=== PATIENT | male | born 1970 | race American Indian/Alaskan Native ===

== ENCOUNTER 2021-04-29 12:24 | Emergency (ER) | payer MEDICARE ==
[2021-04-29] MEDS ORDERED: levETIRAcetam 1000 MG/NS 0.75% 1,000 MG/100 ML BAG IV SCH (12:30)
[2021-04-29] MEDS ORDERED: LORazepam 2 MG/ML VIAL IV SCH (12:30)
--- NOTE | 2021-04-29 12:36 | Emergency Department Report ---
HPI - General Chief Complaint: Neuro Symptoms/Deficit Time Seen by Provider: 04/29/21 12:28 - HPI HPI: Room 25 The patient is a 51-year-old male present with a chief complaint of altered mental status/seizure. Per EMS the patient was at dialysis when he was found to be hypertensive. At 11: 55 the patient stopped responding and had a rightward gaze. Upon EMS arrival the patient was found to have a focal seizure of the right face with a rightward gaze. Per EMS the patient has never responded verbally to them. Upon arrival to the ED the patient localizes with his left hand when given a sternal rub but he does not speak as he continues to seize. Patient was administered 2 mg of Ativan and within 1 to 2 minutes the seizure abated. ED Past Medical Hx - Past Medical History Hx Hypertension: Yes Hx Kidney Stones: Yes (ESRD) - Surgical History Additional Surgical History: Left upper extremity fistula - Family History Family history: no significant - Social History Smoking Status: Unknown if ever smoked Substance Use Type: None ED Review of Systems ROS: Stated complaint: STROKE Other details as noted in HPI Comment: Unobtainable due to pts medical conditions Physical Exam - Physical Exam Vital Signs: Vital Signs 04/29/21 12:28 Pulse Rate 71 Respiratory 18 Rate Blood Pressure 205/132 [Left] O2 Sat by Pulse 98 Oximetry Physical Exam: GENERAL: The patient is well-developed well-nourished male sitting up on stretcher exhibiting rightward gaze with twitching of the right side of his face. [] HEENT: Normocephalic. Atraumatic. Rightward gaze, twitching to the right side of the face NECK: Supple. Trachea midline CHEST/LUNGS: Clear to auscultation. There is no respiratory distress noted. HEART/CARDIOVASCULAR: Regular. There is no tachycardia. There is no gallop rub or murmur. ABDOMEN: Abdomen is soft, nontender. Patient has normal bowel sounds. There is no abdominal distention. SKIN: There is no rash. There is no edema. There is no diaphoresis. NEURO: The patient is having a focal seizure of the right face. Patient does not respond verbally but localizes with the left hand when given a sternal rub. MUSCULOSKELETAL: There is no evidence of acute injury. ED Course Vital Signs 04/29/21 12:28 Pulse Rate 71 Respiratory 18 Rate Blood Pressure 205/132 [Left] O2 Sat by Pulse 98 Oximetry - Reevaluation(s) Reevaluation #1: 04/29/21 13:50 GCS 8 - Consultations Consultation #1: Case discussed with [id number]-[id number]-dc will follow up after CT CT discussed with glrr-[id number]-nwyybulrbl Keppra 2 g and transfer to hospital with a recent intracranial surgery was performed 04/29/21 13:13 [facility] transfer line called 04/29/21 13:51 Case discussed with [facility] neuro pump installation and servicer Dr. Banks- will accept patient in transfer to [facility] Recommends administering DDAVP 0.3 mcg/kg and keeping systolic blood pressure less than 150. 04/29/21 14:29 - Intubation Sedative: Etomidate Mg Given: 20 Paralytic: Succinylcholine Mg Given: 100 Laryngoscope: fiberoptic video scope Size: 3 Assist Device Used: fiberoptic device ET Tube Size: 8 Tube Secured Depth (cm): 24 Tube Secured Location: lips Tube Placement Confirmation: visualized tube passing t, equal breath sounds bila t, no breath sounds over epi, confirmation by capnometr Patient Tolerated Procedure: no complications Intubation Complications: none ED Medical Decision Making - Lab Data Result diagrams: 04/29/21 12:43 04/29/21 12:43 Laboratory Tests 04/29/21 04/29/21 04/29/21 12:43 12:43 12:43 WBC 8.0 RBC 3.78 Hgb 11.1 L Hct 33.7 L MCV 89 MCH 30 MCHC 33 RDW 17.9 H Plt Count 162 Lymph % (Auto) 4.6 L [place] % (Auto) 10.9 H Eos % (Auto) 6.9 H Baso % (Auto) 2.0 H Lymph # (Auto) 0.4 L [place] # (Auto) 0.9 H Eos # (Auto) 0.6 H Baso # (Auto) 0.2 H Seg Neutrophils % 75.6 H Seg Neutrophils # 6.1 PT 15.1 H INR 1.07 APTT 33.9 Sodium 139 Potassium 4.6 Chloride 96.3 L Carbon Dioxide 19 L Anion Gap 28 BUN 79 H Creatinine 14.6 H Estimated GFR 4 BUN/Creatinine Ratio 5 Glucose 121 H Calcium 9.1 Magnesium 2.30 - Radiology Data Radiology results: report reviewed (CT head, CTA brain, CTA neck), image reviewed (CT head, CTA brain, CTA neck) [facility] [address] [place] [address] Cat Scan Report Signed Patient: NICOLE RAYA MR#: [id number] : 1970 Acct:[id number] Age/Sex: 51 / M ADM Date: 04/29/21 Loc: ED Attending Dr: Ordering Physician: RONALD YEPEZ MD Date of Service: 04/29/21 Procedure(s): CT head/brain wo con Accession Number(s): [id number] cc: RONALD YEPEZ MD CT HEAD WITHOUT CONTRAST INDICATION : CODE STROKE CALL REPORT [phone] Altered mental status, rightward gaze, focal seizu. TECHNIQUE: Axial imaging performed from the skull apex through the skull base without the use of contrast. Sagittal and coronal reformatted images. All CT scans at this location are performed using CT dose reduction for ALARA by means of automated exposure control. COMPARISON: None FINDINGS: Parenchyma: A left frontal ventricular peritoneal shunt is identified. There is an approximate 2 x 6 x 2 x 2 cm acute hemorrhage surrounding the ventricular catheter in the left frontal lobe with surrounding edema. No other areas of hemorrhage are identified. No convincing acute ischemic infarct. Mild nonspecific chronic white matter changes are noted. No chronic infarct. Ventricles: Ventricles are normal in size and appear symmetric. Bones: No acute osseous abnormality. Sinuses: Sinuses and mastoid air cells are clear. Soft tissues: There is mild soft tissue swelling and hemorrhagic products in the left frontal soft tissue surrounding the ventriculoperitoneal shunt. IMPRESSION: Acute left frontal hemorrhage as described surrounding the left frontal ventricular catheter. CODE STROKE: Time of Communication (PHYSICAL INSTRUCTOR/CDT): 1240 hours Licensed Practitioner Receiving Report: Dr. Durbin received this information for Dr. Yepez who was in care of the patient. CTA NECK INDICATION / CLINICAL INFORMATION: 51 years Male; CODE STROKE CALL REPORT [phone] Altered mental status, rightward gaze, focal seizu. TECHNIQUE: Thin cut axial images obtained through the head during IV bolus contrast administration. Sagittal, coronal, and 3 plane MIP reconstructions performed by the technologist. NASCET type criteria used evaluate stenoses. All CT scans at this location are performed using CT dose reduction for ALARA by means of automated exposure control. COMPARISON: None available. FINDINGS: ARCH: Mild atherosclerotic disease. CAROTID ARTERIES: The common carotid arteries and internal carotid arteries are tortuous. There are moderate to severe calcific plaques in the right carotid bulb extending to the proximal right ICA. Moderate to severe stenosis is suspected in the proximal right ICA. The remainder of the right ICA is widely patent. There are mild to moderate atherosclerotic plaques in the left carotid bulb with no evidence for stenosis in the left carotid system. VERTEBRAL ARTERIES: Codominant vertebral system seen. No significant stenosis appreciated. ADDITIONAL FINDINGS: Remainder of the surrounding soft tissues are grossly normal. IMPRESSION: Moderate calcific plaques are identified at both carotid bifurcations, more so on the right side. Hemodynamically significant stenosis is suspected in the proximal right ICA and estimated at 70- 80%. The level of stenosis is difficult to measure due to extensive tortuosity of the vessels. Consider correlation with carotid Doppler ultrasound. CTA HEAD INDICATION / CLINICAL INFORMATION: 51 years Male; CODE STROKE CALL REPORT [phone] Altered mental status, rightward gaze, focal seizu. TECHNIQUE: Thin cut axial images obtained through the head during IV bolus contrast administration. Sagittal, coronal, and 3 plane MIP reconstructions performed by the technologist. NASCET type criteria used evaluate stenoses. Automated exposure control utilized for radiation reduction purposes. COMPARISON: None available. FINDINGS: INTERNAL CAROTID ARTERIES: Mild to moderate atherosclerotic plaques are noted in the distal ICAs but no hemodynamically significant stenosis. VERTEBROBASILAR SYSTEM: No significant narrowing appreciated. DISTAL BRANCHES: Distal branches of the anterior, middle, and posterior cerebral arteries are fairly symmetric in appearance and number. There appears to be previous surgical clipping or coiling in the right sylvian fissure which may represent previous aneurysm repair. Please correlate with history. ANEURYSM: None identified. ADDITIONAL FINDINGS: Remainder of the surrounding soft tissues are grossly normal. IMPRESSION: No evidence for stenosis or large vessel occlusion. Question previous aneurysm repair in the right sylvian fissure. Signer Name: Neal Interiano Jr, MD Signed: 04/29/2021 1:47 PM Workstation Name: [id number] Transcribed By: TTR Dictated By: NEAL INTERIANO JR, MD Electronically Authenticated By: NEAL INTERIANO JR, MD Signed Date/Time: 04/29/21 1347 DD/ 1330 TD/TT: Print Cancel [facility] [address] [place] [address] Cat Scan Report Signed Patient: NICOLE RAYA MR#: [id number] : 1970 Acct:[id number] Age/Sex: 51 / M ADM Date: 04/29/21 Loc: ED Attending Dr: Ordering Physician: RONALD YEPEZ MD Date of Service: 04/29/21 Procedure(s): CT angio head Accession Number(s): [id number] cc: RONALD YEPEZ MD CT HEAD WITHOUT CONTRAST INDICATION : CODE STROKE CALL REPORT [phone] Altered mental stat us, rightward gaze, focal seizu. TECHNIQUE: Axial imaging performed from the skull apex through the skull base without the use of contrast. Sagittal and coronal reformatted images. All CT scans at this location are performed using CT dose reduction for ALARA by means of automated exposure control. COMPARISON: None FINDINGS: Parenchyma: A left frontal ventricular peritoneal shunt is identified. There is an approximate 2 x 6 x 2 x 2 cm acute hemorrhage surrounding the ventricular catheter in the left frontal lobe with surrounding edema. No other areas of hemorrhage are identified. No convincing acute ischemic infarct. Mild nonspecific chronic white matter changes are noted. No chronic infarct. Ventricles: Ventricles are normal in size and appear symmetric. Bones: No acute osseous abnormality. Sinuses: Sinuses and mastoid air cells are clear. Soft tissues: There is mild soft tissue swelling and hemorrhagic products in the left frontal soft tissue surrounding the ventriculoperitoneal shunt. IMPRESSION: Acute left frontal hemorrhage as described surrounding the left frontal ventricular catheter. CODE STROKE: Time of Communication (PHYSICAL INSTRUCTOR/CDT): 1240 hours Licensed Practitioner Receiving Report: Dr. Durbin received this information for Dr. Yepez who was in care of the patient. CTA NECK INDICATION / CLINICAL INFORMATION: 51 years Male; CODE STROKE CALL REPORT [phone] Altered mental status, rightward gaze, focal seizu. TECHNIQUE: Thin cut axial images obtained through the head during IV bolus contrast administration. Sagittal, coronal, and 3 plane MIP reconstructions performed by the technologist. NASCET type criteria used evaluate stenoses. All CT scans at this location are performed using CT dose reduction for ALARA by means of automated exposure control. COMPARISON: None available. FINDINGS: ARCH: Mild atherosclerotic disease. CAROTID ARTERIES: The common carotid arteries and inter nal carotid arteries are tortuous. There are moderate to severe calcific plaques in the right carotid bulb extending to the proximal right ICA. Moderate to severe stenosis is suspected in the proximal right ICA. The remainder of the right ICA is widely patent. There are mild to moderate atherosclerotic plaques in the left carotid bulb with no evidence for stenosis in the left carotid system. VERTEBRAL ARTERIES: Codominant vertebral system seen. No significant stenosis appreciated. ADDITIONAL FINDINGS: Remainder of the surrounding soft tissues are grossly normal. IMPRESSION: Moderate calcific plaques are identified at both carotid bifurcations, more so on the right side. Hemodynamically signi ficant stenosis is suspected in the proximal right ICA and estimated at 70-80%. The level of stenosis is difficult to measure due to extensive tortuosity of the vessels. Consider correlation with carotid Doppler ultrasound. CTA HEAD INDICATION / CLINICAL INFORMATION: 51 years Male; CODE STROKE CALL REPORT [phone] Altered mental status, rightward gaze, focal seizu. TECHNIQUE: Thin cut axial images obtained through the head during IV bolus contrast administration. Sagittal, coronal, and 3 plane MIP reconstructions performed by the technologist. NASCET type criteria used evaluate stenoses. Automated exposure control utilized for radiation reduction purposes. COMPARISON: None available. FINDINGS: INTERNAL CAROTID ARTERIES: Mild to moderate atherosclerotic plaques are noted in the distal ICAs but no hemodynamically significant stenosis. VERTEBROBASILAR SYSTEM: No significant narrowing appreciated. DISTAL BRANCHES: Distal branches of the anterior, middle, and posterior cerebral arteries are fairly symmetric in appearance and number. There appears to be previous surgical clipping or coiling in the right sylvian fissure which may represent previous aneurysm repair. Please correlate with history. ANEURYSM: None identified. ADDITIONAL FINDINGS: Remainder of the surrounding soft tissues are grossly normal. IMPRESSION: No evidence for stenosis or large vessel occlusion. Question previous aneurysm repair in the right sylvian fissure. Signer Name: Neal Interiano Jr, MD Signed: 04/29/2021 1:47 PM Workstation Name: [id number] Transcribed By: TTR Dictated By: NEAL INTERIANO JR, MD Electronically Authenticated By: NEAL INTERIANO JR, MD Signed Date/Time: 04/29/21 1347 DD/ 1330 TD/TT: Print Cancel [facility] [address] [place] [address] Cat Scan Report Signed Patient: NICOLE RAYA MR#: [id number] : 1970 Acct:[id number] Age/Sex: 51 / M ADM Date: 04/29/21 Loc: ED Attending Dr: Say hernandez Physician: RONALD YEPEZ MD Date of Service: 04/29/21 Procedure(s): CT angio neck Accession Number(s): [id number] cc: RONALD YEPEZ MD CT HEAD WITHOUT CONTRAST INDICATION : CODE STROKE CALL REPORT [phone] Altered mental status, rightward gaze, focal seizu. TECHNIQUE: Axial imaging performed from the skull apex through the skull base without the use of contrast. Sagittal and coronal reformatted images. All CT scans at this location are performed using CT dose reduction for ALARA by means of automated exposure control. COMPARISON: None FINDINGS: Parenchyma: A left frontal ventricular peritoneal shunt is identified. There is an approximate 2 x 6 x 2 x 2 cm acute hemorrhage surrounding the ventricular catheter in the left frontal lobe with surrounding edema. No other areas of hemorrhage are identified. No convincing acute ischemic infarct. Mild nonspecific chronic white matter changes are noted. No chronic infarct. Ventricles: Ventricles are normal in size and appear symmetric. Bones: No acute osseous abnormality. Sinuses: Sinuses and mastoid air cells are clear. Soft tissues: There is mild soft tissue swelling and hemorrhagic products in the left frontal soft tissue surrounding the ventriculoperitoneal shunt. IMPRESSION: Acute left frontal hemorrhage as described surrounding the left frontal ventricular catheter. CODE STROKE: Time of Communication (PHYSICAL INSTRUCTOR/CDT): 1240 hours Licensed Practitioner Receiving Report: Dr. Durbin received this information for Dr. Yepez who was in care of the patient. CTA NECK INDICATION / CLINICAL INFORMATION: 51 years Male; CODE STROKE CALL REPORT [phone] Altered mental status, rightward gaze, focal seizu. TECHNIQUE: Thin cut axial images obtained through the head during IV bolus contrast administration. Sagittal, coronal, and 3 plane MIP reconstructions performed by the technologist. NASCET type criteria used evaluate stenoses. All CT scans at t his location are performed using CT dose reduction for ALARA by means of automated exposure control. COMPARISON: None available. FINDINGS: ARCH: Mild atherosclerotic disease. CAROTID ARTERIES: The common carotid arteries and internal carotid arteries are tortuous. There are moderate to severe calcific plaques in the right carotid bulb extending to the proximal right ICA. Moderate to severe stenosis is suspected in the proximal right ICA. The remainder of the right ICA is widely patent. There are mild to moderate atherosclerotic plaques in the left carotid bulb with no evidence for stenosis in the left carotid system. VERTEBRAL ARTERIES: Codominant vertebral system seen. No significant stenosis appreciated. ADDITIONAL FINDINGS: Remainder of the surrounding soft tissues are grossly normal. IMPRESSION: Moderate calcific plaques are identified at both carotid bifurcations, more so on the right side. Hemodynamically significant stenosis is suspected in the proximal right ICA and estimated at 70- 80%. The level of stenosis is difficult to measure due to extensive tortuosity of the vessels. Consider correlation with carotid Doppler ultrasound. CTA HEAD INDICATION / CLINICAL INFORMATION: 51 years Male; CODE STROKE CALL REPORT [phone] Altered mental status, rightward gaze, focal seizu. TECHNIQUE: Thin cut axial images obtained through the head during IV bolus contrast administration. Sagittal, coronal, and 3 plane MIP reconstructions performed by the technologist. NASCET type criteria used evaluate stenoses. Automated exposure control utilized for radiation reduction purposes. COMPARISON: None available. FINDINGS: INTERNAL CAROTID ARTERIES: Mild to moderate atherosclerotic plaques are noted in the distal ICAs but no hemodynamically significant stenosis. VERTEBROBASILAR SYSTEM: No significant narrowing appreciated. DISTAL BRANCHES: Distal branches of the anterior, middle, and posterior cerebral arteries are fairly symmetric in appearance and number. There appears to be pr evious surgical clipping or coiling in the right sylvian fissure which may represent previous aneurysm repair. Please correlate with history. ANEURYSM: None identified. ADDITIONAL FINDINGS: Remainder of the surrounding soft tissues are grossly normal. IMPRESSION: No evidence for stenosis or large vessel occlusion. Question previous aneurysm repair in the right sylvian fissure. Signer Name: Neal Interiano Jr, MD Signed: 04/29/2021 1:47 PM Workstation Name: [id number] Transcribed By: TTR Dictated By: NEAL INTERIANO JR, MD Electronically Authenticated By: NEAL INTERIANO JR, MD Signed Date/Time: 04/29/21 1347 DD/ 1330 TD/TT: Print Cancel - Medical Decision Making Patient intubated to secure airway for transport - Differential Diagnosis Seizure, ICH, hypertensive emergency Critical Care Time: Yes Critical care time in (mins) excluding proc time.: 30 Critical care attestation.: If time is entered above; I have spent that time in minutes in the direct care of this critically ill patient, excluding procedure time. ED Disposition Clinical Impression: Intracranial hemorrhage, Seizure, Hypertensive emergency Disposition: 51 HOSPICE/MEDICAL FACILITY Is pt being admited?: No Does the pt Need Aspirin: No Condition: Serious Instructions: Hypertension (ED) Time of Disposition: 14:25 (Awaiting transport)
[2021-04-29] MEDS ORDERED: levETIRAcetam 1000 MG/NS 0.75% 1,000 MG/100 ML BAG IV ONE (12:39)
[2021-04-29 13:10] LABS: Basophils # (Auto) 0.2 K/mm3 (0.0-0.1); Eosinophils # (Auto) 0.6 K/mm3 (0.0-0.4); Eosinophils % (Auto) 6.9 % (0.0-4.3); Hematocrit 33.7 % (35.5-45.6); Hemoglobin 11.1 gm/dl (11.8-15.2); Lymphocytes # (Auto) 0.4 K/mm3 (1.2-5.4); Lymphocytes % (Auto) 4.6 % (13.4-35.0); Mean Corpuscular HGB Conc 33 % (32-34); Mean Corpuscular Volume 89 fl (84-94); Monocytes # (Auto) 0.9 K/mm3 (0.0-0.8); Monocytes % (Auto) 10.9 % (0.0-7.3); Platelet Count 162 K/mm3 (140-440); Red Blood Count 3.78 M/mm3 (3.65-5.03); Red Cell Distribution Width 17.9 % (13.2-15.2)
--- NOTE | 2021-04-29 13:13 | Consultation ---
History of Present Illness History of present illness: [place] [facility] Consult Note # Demographics Consult Type: Acute Stroke Level 1 (0-4.5 hrs) Patient Location: Emergency Room First Name: Jermain Last Name: Kurtis Date of : 1970 Age: 51 Gender: Male Facility: [facility] Time of Initial Page ( Time): 04/29/2021, 12:21 Time of Return Call ( Time): 04/29/2021, 12:21 # HPI Chief Complaint: seizure History: with ESRD on HD, presents from dialysis when he had a rightward gaze. On arrival to ED, convulsing with persistent rightward gaze. BP 205/130 # Scores Time of exam and NIHSS (): 04/29/2021, 12:28 Level of Consciousness 1a: [0] = Alert; keenly responsive LOC Questions 1b: [2] = Answers neither correctly LOC Commands 1c: [1] = Performs one correctly Best Gaze 2: [1] = Partial gaze palsy Visual 3: [0] = No visual loss Facial Palsy 4: [0] = Normal symmetrical movements Motor Arm Left 5a: [0] = No drift Motor Arm Right 5b: [0] = No drift Motor Leg Left 6a: [1] = Drift Motor Leg Right 6b: [1] = Drift Limb Ataxia 7: [0] = Absent Sensory 8: [0] = Normal Best Language 9: [2] = Severe aphasia Dysarthria 10: [2] = Severe dysarthria Extinction and Inattention 11: [0] = No abnormality NIHSS Total: 10 # Data Time Head CT personally read by me (): 04/29/2021, 13:[address]: hemorrhage preliminarily reviewed by me, please refer to radiology read for official reading left frontal hemorrhage surrounding VPS catheter # Assessment Impression: Intracerebral hemorrhage Seizure # Plan Thrombolytic/Intervention: NOT IV Thrombolysis or IA Intervention candidate Thrombolytic Exclusion (< 3 hour window): ICH Intraarterial Exclusion: ICH Target Blood Pressure: SBP < 160 Medication: Levetiracetam 2g Other: consult neurosurgery I have discussed my recommendations with the referring provider Additional Recommendations: Given recent surgery, should try to transfer to hospital where this was performed Disposition: transfer # Logistics Telemedicine: Interactive 2 way audio and visual telecommunication technology was utilized during this visit Electronically signed at 04/29/2021 13:12 (Eastern Time) by Vic Sutherland MD Medications and Allergies Allergies Allergy/AdvReac Type Severity Reaction Status Date / Time promethazine [From Phenergan] AdvReac Unknown Verified 04/29/21 12:32 Active Meds: Active Medications Levetiracetam (Keppra 1,000 Mg/Ns 0.75% 100ml) 1,000 mg in 100 mls @ 400 mls/hr IV ONCE@1230 MIKEL Stop: 04/29/21 16:00 Lorazepam (Lorazepam 2 Mg/Ml Vial) 2 mg IV ONCE@1230 MIKEL Stop: 04/29/21 15:00 Physical Examination - Vital Signs Vital Signs: Vital Signs Pulse Resp BP Pulse Ox 71 18 205/132 98 04/29/21 12:28 04/29/21 12:28 04/29/21 12:28 04/29/21 12:28 Results - Laboratory Findings CBC and BMP: 04/29/21 12:43 Abnormal Lab Findings: Abnormal Labs 04/29/21 12:43 Hgb 11.1 L Hct 33.7 L RDW 17.9 H Lymph % (Auto) 4.6 L [place] % (Auto) 10.9 H Eos % (Auto) 6.9 H Baso % (Auto) 2.0 H Lymph # (Auto) 0.4 L [place] # (Auto) 0.9 H Eos # (Auto) 0.6 H Baso # (Auto) 0.2 H Seg Neutrophils % 75.6 H
[2021-04-29 13:19] LABS: INR 1.07 (0.87-1.13); Partial Thromboplastin Time 33.9 Sec. (24.2-36.6)
[2021-04-29 13:29] LABS: Calcium 9.1 mg/dL (8.4-10.2)
[2021-04-29] MEDS ORDERED: niCARdipine DRIP 40 MG/200 ML BAG IV ONE (13:34)
[2021-04-29] MEDS ORDERED: SODIUM CHLORIDE 0.9% IV ONE (13:48)
[2021-04-29] MEDS ORDERED: DESMOPRESSIN ACETATE IV ONE (13:48)
--- NOTE | 2021-04-29 13:52 | Cat Scan Report ---
CT HEAD WITHOUT CONTRAST INDICATION : CODE STROKE CALL REPORT [phone] Altered mental status, rightward gaze, focal seizu. TECHNIQUE: Axial imaging performed from the skull apex through the skull base without the use of con trast. Sagittal and coronal reformatted images. All CT scans at this location are performed using C T dose reduction for ALARA by means of automated exposure control. COMPARISON: None FINDINGS: Parenchyma: A left frontal ventricular peritoneal shunt is identified. There is an approximate 2 x 6 x 2 x 2 cm acute hemorrhage surrounding the ventricular catheter in the left frontal lobe with surro unding edema. No other areas of hemorrhage are identified. No convincing acute ischemic infarct. Mild nonspecific chronic white matter changes are noted. No chronic infarct. Ventricles: Ventricles are normal in size and appear symmetric. Bones: No acute osseous abnormality. Sinuses: Sinuses and mastoid air cells are clear. Soft tissues: There is mild soft tissue swelling and hemorrhagic products in the left frontal soft t issue surrounding the ventriculoperitoneal shunt. IMPRESSION: Acute left frontal hemorrhage as described surrounding the left frontal ventricular angle ter. CODE STROKE: Time of Communication (SCALP TREATMENT OPERATOR/CDT): 1240 hours Licensed Practitioner Receiving Report: Dr. Durbin received this information for Dr. Luke who was in care of the patient. CTA NECK INDICATION / CLINICAL INFORMATION: 51 years Male; CODE STROKE CALL REPORT [phone] Altered mental status, rightward gaze, focal seiz u. TECHNIQUE: Thin cut axial images obtained through the head during IV bolus contrast administration. S agittal, coronal, and 3 plane MIP reconstructions performed by the technologist. NASCET type criteria used evaluate stenoses. All CT scans at this location are performed using CT dose reduction for ALAR A by means of automated exposure control. COMPARISON: None available. FINDINGS: ARCH: Mild atherosclerotic disease. CAROTID ARTERIES: The common carotid arteries and internal carotid arteries are tortuous. There are m oderate to severe calcific plaques in the right carotid bulb extending to the proximal right ICA. Mod erate to severe stenosis is suspected in the proximal right ICA. The remainder of the right ICA is wi judith patent. There are mild to moderate atherosclerotic plaques in the left carotid bulb with no evid ence for stenosis in the left carotid system. VERTEBRAL ARTERIES: Codominant vertebral system seen. No significant stenosis appreciated. ADDITIONAL FINDINGS: Remainder of the surrounding soft tissues are grossly normal. IMPRESSION: Moderate calcific plaques are identified at both carotid bifurcations, more so on the rig ht side. Hemodynamically significant stenosis is suspected in the proximal right ICA and estimated at 70-80%. The level of stenosis is difficult to measure due to extensive tortuosity of the vessels. Co nsider correlation with carotid Doppler ultrasound. CTA HEAD INDICATION / CLINICAL INFORMATION: 51 years Male; CODE STROKE CALL REPORT [phone] Altered mental status, rightward gaze, focal seiz u. TECHNIQUE: Thin cut axial images obtained through the head during IV bolus contrast administration. S agittal, coronal, and 3 plane MIP reconstructions performed by the technologist. NASCET type criteria used evaluate stenoses. Automated exposure control utilized for radiation reduction purposes. COMPARISON: None available. FINDINGS: INTERNAL CAROTID ARTERIES: Mild to moderate atherosclerotic plaques are noted in the distal ICAs but no hemodynamically significant stenosis. VERTEBROBASILAR SYSTEM: No significant narrowing appreciated. DISTAL BRANCHES: Distal branches of the anterior, middle, and posterior cerebral arteries are fairly symmetric in appearance and number. There appears to be previous surgical clipping or coiling in the right sylvian fissure which may represent previous aneurysm repair. Please correlate with history. ANEURYSM: None identified. ADDITIONAL FINDINGS: Remainder of the surrounding soft tissues are grossly normal. IMPRESSION: No evidence for stenosis or large vessel occlusion. Question previous aneurysm repair in the right sy lvian fissure. Signer Name: Neal Interiano Jr, MD Signed: 04/29/2021 1:47 PM Workstation Name: [id number]
--- NOTE | 2021-04-29 13:52 | Cat Scan Report ---
CT HEAD WITHOUT CONTRAST INDICATION : CODE STROKE CALL REPORT [phone] Altered mental status, rightward gaze, focal seizu. TECHNIQUE: Axial imaging performed from the skull apex through the skull base without the use of con trast. Sagittal and coronal reformatted images. All CT scans at this location are performed using C T dose reduction for ALARA by means of automated exposure control. COMPARISON: None FINDINGS: Parenchyma: A left frontal ventricular peritoneal shunt is identified. There is an approximate 2 x 6 x 2 x 2 cm acute hemorrhage surrounding the ventricular catheter in the left frontal lobe with surro unding edema. No other areas of hemorrhage are identified. No convincing acute ischemic infarct. Mild nonspecific chronic white matter changes are noted. No chronic infarct. Ventricles: Ventricles are normal in size and appear symmetric. Bones: No acute osseous abnormality. Sinuses: Sinuses and mastoid air cells are clear. Soft tissues: There is mild soft tissue swelling and hemorrhagic products in the left frontal soft t issue surrounding the ventriculoperitoneal shunt. IMPRESSION: Acute left frontal hemorrhage as described surrounding the left frontal ventricular angle ter. CODE STROKE: Time of Communication (ADULT EDUCATION MANAGER/CDT): 1240 hours Licensed Practitioner Receiving Report: Dr. Durbin received this information for Dr. Luke who was in care of the patient. CTA NECK INDICATION / CLINICAL INFORMATION: 51 years Male; CODE STROKE CALL REPORT [phone] Altered mental status, rightward gaze, focal seiz u. TECHNIQUE: Thin cut axial images obtained through the head during IV bolus contrast administration. S agittal, coronal, and 3 plane MIP reconstructions performed by the technologist. NASCET type criteria used evaluate stenoses. All CT scans at this location are performed using CT dose reduction for ALAR A by means of automated exposure control. COMPARISON: None available. FINDINGS: ARCH: Mild atherosclerotic disease. CAROTID ARTERIES: The common carotid arteries and internal carotid arteries are tortuous. There are m oderate to severe calcific plaques in the right carotid bulb extending to the proximal right ICA. Mod erate to severe stenosis is suspected in the proximal right ICA. The remainder of the right ICA is wi judith patent. There are mild to moderate atherosclerotic plaques in the left carotid bulb with no evid ence for stenosis in the left carotid system. VERTEBRAL ARTERIES: Codominant vertebral system seen. No significant stenosis appreciated. ADDITIONAL FINDINGS: Remainder of the surrounding soft tissues are grossly normal. IMPRESSION: Moderate calcific plaques are identified at both carotid bifurcations, more so on the rig ht side. Hemodynamically significant stenosis is suspected in the proximal right ICA and estimated at 70-80%. The level of stenosis is difficult to measure due to extensive tortuosity of the vessels. Co nsider correlation with carotid Doppler ultrasound. CTA HEAD INDICATION / CLINICAL INFORMATION: 51 years Male; CODE STROKE CALL REPORT [phone] Altered mental status, rightward gaze, focal seiz u. TECHNIQUE: Thin cut axial images obtained through the head during IV bolus contrast administration. S agittal, coronal, and 3 plane MIP reconstructions performed by the technologist. NASCET type criteria used evaluate stenoses. Automated exposure control utilized for radiation reduction purposes. COMPARISON: None available. FINDINGS: INTERNAL CAROTID ARTERIES: Mild to moderate atherosclerotic plaques are noted in the distal ICAs but no hemodynamically significant stenosis. VERTEBROBASILAR SYSTEM: No significant narrowing appreciated. DISTAL BRANCHES: Distal branches of the anterior, middle, and posterior cerebral arteries are fairly symmetric in appearance and number. There appears to be previous surgical clipping or coiling in the right sylvian fissure which may represent previous aneurysm repair. Please correlate with history. ANEURYSM: None identified. ADDITIONAL FINDINGS: Remainder of the surrounding soft tissues are grossly normal. IMPRESSION: No evidence for stenosis or large vessel occlusion. Question previous aneurysm repair in the right sy lvian fissure. Signer Name: Neal Interiano Jr, MD Signed: 04/29/2021 1:47 PM Workstation Name: [id number]
--- NOTE | 2021-04-29 13:52 | Cat Scan Report ---
CT HEAD WITHOUT CONTRAST INDICATION : CODE STROKE CALL REPORT [phone] Altered mental status, rightward gaze, focal seizu. TECHNIQUE: Axial imaging performed from the skull apex through the skull base without the use of con trast. Sagittal and coronal reformatted images. All CT scans at this location are performed using C T dose reduction for ALARA by means of automated exposure control. COMPARISON: None FINDINGS: Parenchyma: A left frontal ventricular peritoneal shunt is identified. There is an approximate 2 x 6 x 2 x 2 cm acute hemorrhage surrounding the ventricular catheter in the left frontal lobe with surro unding edema. No other areas of hemorrhage are identified. No convincing acute ischemic infarct. Mild nonspecific chronic white matter changes are noted. No chronic infarct. Ventricles: Ventricles are normal in size and appear symmetric. Bones: No acute osseous abnormality. Sinuses: Sinuses and mastoid air cells are clear. Soft tissues: There is mild soft tissue swelling and hemorrhagic products in the left frontal soft t issue surrounding the ventriculoperitoneal shunt. IMPRESSION: Acute left frontal hemorrhage as described surrounding the left frontal ventricular angle ter. CODE STROKE: Time of Communication (ALTO SINGER/CDT): 1240 hours Licensed Practitioner Receiving Report: Dr. Durbin received this information for Dr. Luke who was in care of the patient. CTA NECK INDICATION / CLINICAL INFORMATION: 51 years Male; CODE STROKE CALL REPORT [phone] Altered mental status, rightward gaze, focal seiz u. TECHNIQUE: Thin cut axial images obtained through the head during IV bolus contrast administration. S agittal, coronal, and 3 plane MIP reconstructions performed by the technologist. NASCET type criteria used evaluate stenoses. All CT scans at this location are performed using CT dose reduction for ALAR A by means of automated exposure control. COMPARISON: None available. FINDINGS: ARCH: Mild atherosclerotic disease. CAROTID ARTERIES: The common carotid arteries and internal carotid arteries are tortuous. There are m oderate to severe calcific plaques in the right carotid bulb extending to the proximal right ICA. Mod erate to severe stenosis is suspected in the proximal right ICA. The remainder of the right ICA is wi judith patent. There are mild to moderate atherosclerotic plaques in the left carotid bulb with no evid ence for stenosis in the left carotid system. VERTEBRAL ARTERIES: Codominant vertebral system seen. No significant stenosis appreciated. ADDITIONAL FINDINGS: Remainder of the surrounding soft tissues are grossly normal. IMPRESSION: Moderate calcific plaques are identified at both carotid bifurcations, more so on the rig ht side. Hemodynamically significant stenosis is suspected in the proximal right ICA and estimated at 70-80%. The level of stenosis is difficult to measure due to extensive tortuosity of the vessels. Co nsider correlation with carotid Doppler ultrasound. CTA HEAD INDICATION / CLINICAL INFORMATION: 51 years Male; CODE STROKE CALL REPORT [phone] Altered mental status, rightward gaze, focal seiz u. TECHNIQUE: Thin cut axial images obtained through the head during IV bolus contrast administration. S agittal, coronal, and 3 plane MIP reconstructions performed by the technologist. NASCET type criteria used evaluate stenoses. Automated exposure control utilized for radiation reduction purposes. COMPARISON: None available. FINDINGS: INTERNAL CAROTID ARTERIES: Mild to moderate atherosclerotic plaques are noted in the distal ICAs but no hemodynamically significant stenosis. VERTEBROBASILAR SYSTEM: No significant narrowing appreciated. DISTAL BRANCHES: Distal branches of the anterior, middle, and posterior cerebral arteries are fairly symmetric in appearance and number. There appears to be previous surgical clipping or coiling in the right sylvian fissure which may represent previous aneurysm repair. Please correlate with history. ANEURYSM: None identified. ADDITIONAL FINDINGS: Remainder of the surrounding soft tissues are grossly normal. IMPRESSION: No evidence for stenosis or large vessel occlusion. Question previous aneurysm repair in the right sy lvian fissure. Signer Name: Neal Interiano Jr, MD Signed: 04/29/2021 1:47 PM Workstation Name: [id number]
[2021-04-29] MEDS ORDERED: LIDOCAINE PF 100 MG/5 ML (CARDIAC SYRINGE) IV ONE (14:03)
[2021-04-29] MEDS ORDERED: SUCCINYLCHOLINE CHLORIDE 200 MG/10 ML INJ MDV ONE (14:03)
[2021-04-29] MEDS ORDERED: ETOMIDATE 20 MG/10 ML INJ IV ONE (14:03)
[2021-04-29 15:37] LABS: ABG Base Excess -3.5 mmol/L (-2.0-3.0); ABG HCO3 23.4 mmol/L (20.0-26.0); ABG Methemoglobin 0.4 % (0.0-1.5); ABG Oxygen Saturation 99.5 % (95.0-99.0); ABG PCO2 51.8 mm Hg; ABG PH 7.273 pH Units (7.350-7.450)
[2021-04-29 15:54] VITALS: BP 138/78
== END 2021-04-29 16:06 | disposition hospice, inpatient (51) ==
LOC: ED 12:24
DX: I62.9 Nontraumatic intracranial hemorrhage, unspecified (principal); I16.1 Hypertensive emergency; R56.9 Unspecified convulsions; I12.0 Hypertensive chronic kidney disease with stage 5 chronic kidney disease or end stage renal disease
CPT/HCPCS: 31500; 36415; 70450; 70496; 70498; 80048; 82803; 83735; 85025; 85610; 85730; 96365; 96375; 99291; J0330; J1953; J2001; J2597; J2704; J3490; Q9967; 94002

== ENCOUNTER 2021-05-10 14:57 | Emergency (ER) | payer MEDICARE ==
[2021-05-10 15:13] VITALS: BP 159/97
--- NOTE | 2021-05-10 15:39 | Emergency Department Report ---
ED General Adult HPI - General Chief complaint: Weakness Stated complaint: I missed dialysis, and I just want to make sure that I am okay Time Seen by Provider: 05/10/21 15:38 Source: patient, RN notes reviewed, old records reviewed Mode of arrival: Ambulatory Limitations: No Limitations - History of Present Illness Initial comments: This patient is a 51-year-old gentleman, who presents to the ER with a primary complaint of missing hemodialysis today, and seeking reassurance. His stretcher operator is Dr. West The patient received hemodialysis Wednesday, , Wednesday. He was last dialyzed on . He reports that he was recently switched to sevelamer and this occasionally causes him to have cramping and "abdominal issues." He currently denies headache, neck pain, chest pain, abdominal pain, shortness of breath, nausea, vomiting, diarrhea, urinary symptoms. He reports that he feels like he is at his baseline, and is presenting primarily for the purposes of reassurance. He was dialyzed this past , 2 days ago, and reports it was his normal length in duration -: Sudden Improves with: none Worsens with: none Associated Symptoms: denies other symptoms - Related Data Allergies Allergy/AdvReac Type Severity Reaction Status Date / Time promethazine [From Phenergan] AdvReac Unknown Verified 04/29/21 14:35 ED Review of Systems ROS: Stated complaint: MISSED DIALYSIS/ALTER MENTAL Other details as noted in HPI Comment: All other systems reviewed and negative ED Past Medical Hx - Past Medical History Hx Hypertension: Yes Hx Kidney Stones: Yes (ESRD) - Surgical History Additional Surgical History: Left upper extremity fistula - Social History Smoking Status: Unknown if ever smoked Substance Use Type: None ED Physical Exam - General Limitations: No Limitations General appearance: alert, in no apparent distress - Head Head exam: Present: atraumatic, normocephalic - Eye Eye exam: Present: normal appearance, EOMI. Absent: nystagmus - ENT ENT exam: Present: normal exam, normal orophraynx, mucous membranes moist, normal external ear exam - Neck Neck exam: Present: normal inspection, full ROM. Absent: tenderness, meningismus - Respiratory Respiratory exam: Present: normal lung sounds bilaterally. Absent: respiratory distress, wheezes, rales, rhonchi, stridor, decreased breath sounds - Cardiovascular Cardiovascular Exam: Present: regular rate, normal rhythm, normal heart sounds. Absent: bradycardia, tachycardia, irregular rhythm, systolic murmur, diastolic murmur, rubs, gallop - GI/Abdominal GI/Abdominal exam: Present: soft. Absent: distended, tenderness, guarding, rebound, rigid, pulsatile mass - Rectal Rectal exam: Present: deferred - Extremities Exam Extremities exam: Present: normal inspection (Left upper extremity fistula noted, without redness, pus, streaking. There is an appropriate thrill.), full ROM, pedal edema, other (2+ pulses noted in the bilateral upper and lower extremities. There is no palpable cord. negative Homans sign. Muscular compartments are soft. The pelvis is stable.). Absent: calf tenderness - Back Exam Back exam: Present: normal inspection, full ROM. Absent: tenderness, CVA tenderness (R), CVA tenderness (L), paraspinal tenderness, vertebral tenderness - Neurological Exam Neurological exam: Present: alert, oriented X3, normal gait, other (No facial droop. Tongue midline. Extraocular movements intact bilaterally. Facial sensation intact to light touch in V1, V2, V3 distribution bilaterally. 5 and a 5 strength in 4 extremities. Sensation intact to light touch in 4 extremities.). Absent: motor sensory deficit - Psychiatric Psychiatric exam: Present: normal affect, normal mood - Skin Skin exam: Present: warm, dry, intact, normal color. Absent: rash ED Course Vital Signs 05/10/21 15:05 Temperature 97.9 F Pulse Rate 66 Respiratory 20 Rate Blood Pressure 159/97 O2 Sat by Pulse 98 Oximetry ED Medical Decision Making - Lab Data Result diagrams: 05/10/21 15:57 05/10/21 15:57 Vital Signs 05/10/21 15:05 Temperature 97.9 F Pulse Rate 66 Respiratory 20 Rate Blood Pressure 159/97 O2 Sat by Pulse 98 Oximetry Lab Results 05/10/21 05/10/21 05/10/21 Range/Units 15:57 15:57 15:57 WBC 8.0 (4.5-11.0) K/mm3 RBC 3.49 L (3.65-5.03) M/mm3 Hgb 10.4 L (11.8-15.2) gm/dl Hct 31.2 L (35.5-45.6) % MCV 89 (84-94) fl MCH 30 (28-32) pg MCHC 33 (32-34) % RDW 17.3 H (13.2-15.2) % Plt Count 136 L (140-440) K/mm3 PT 14.2 (12.2-14.9) Sec. INR 0.99 (0.87-1.13) Sodium 138 (137-145) mmol/L Potassium 4.8 (3.6-5.0) mmol/L Chloride 95.3 L (98-107) mmol/L Carbon Dioxide 23 (22-30) mmol/L Anion Gap 25 mmol/L BUN 68 H (9-20) mg/dL Creatinine 12.3 H (0.8-1.3) mg/dL Estimated GFR 5 ml/min BUN/Creatinine Ratio 6 % Glucose 85 (75-100) mg/dL Calcium 9.1 (8.4-10.2) mg/dL - Medical Decision Making Differential diagnosis, including but not limited to: End-stage renal disease on hemodialysis, encounter for medical screening examination Assessment and plan: 51-year-old gentleman, who was afebrile, with reassuring vital signs, clinically sober, with a GCS of 15, presenting today with a primary complaint of medical clearance after accidentally missing hemodialysis earlier on today. His recent ER visit is reviewed and appreciated. He denies headache, at seizure, altered mental status and encephalopathy. He denies all physical complaints at this time. He is awake, alert, oriented, sober of sound mind, drinking soda and eating food, and in no acute distress. His physical examination is essentially unremarkable. Laboratory studies today are reviewed and appreciated. Patient does not require emergent hemodialysis at this time. As a courtesy, we will contact covering nephrology, and discussed the patient's case with covering nephrology. Patient at this point time may be discharged to follow-up with outpatient primary care and/or nephrology. Hopefully, his outpatient stretcher operator can arrange for hemodialysis this Wednesday. Return precautions are reviewed. Patient endorses understanding I also discussed the patient's history, physical and laboratory studies with covering nephrology Dr. Izaguirre. He will attempt to arrange for hemodialysis ch air time on Wednesday, but also advises that the patient should call his dialysis center Wednesday morning to see if they can accommodate an extra chair time, patient may return to the emergency room if he worsens, but Dr. Izaguirre also advises that it should be acceptable for the patient to wait until Wednesday, should he not be able to obtain chair time on Wednesday. Critical care attestation.: If time is entered above; I have spent that time in minutes in the direct care of this critically ill patient, excluding procedure time. ED Disposition Clinical Impression: End stage renal disease, Missed dialysis Disposition: HOME / SELF CARE / HOMELESS Is pt being admited?: No Does the pt Need Aspirin: No Condition: Good Instructions: Dialysis Additional Instructions: Please continue current outpatient medications. Please follow-up with your outpatient kidney doctor/stretcher operator within 2 to 3 days for repeat checkup and evaluation. Avoid consumption of Motrin, ibuprofen, Naprosyn, Aleve, alcohol. Please contact your hemodialysis facility first thing Wednesday, and ask if they have an extra chair time that can accommodate you. If so, please go to that hemodialysis session on Wednesday. If not having any symptoms or additional complaints, and not able to obtain chair time Wednesday, please follow-up first thing on Wednesday for routinely scheduled hemodialysis chair time. Please return to the emergency room right away with new pain, worsened pain, migration of pain, projectile vomiting, change in mental status, confusion, inability tolerate liquid feeds, new, worsened or different symptoms not present on the initial emergency room evaluation Referrals: SUZIE BROWNING MD [Staff Physician] - 3-5 Days
[2021-05-10 16:43] LABS: Hematocrit 31.2 % (35.5-45.6); Hemoglobin 10.4 gm/dl (11.8-15.2); Mean Corpuscular HGB Conc 33 % (32-34); Mean Corpuscular Volume 89 fl (84-94); Platelet Count 136 K/mm3 (140-440); Red Blood Count 3.49 M/mm3 (3.65-5.03); Red Cell Distribution Width 17.3 % (13.2-15.2)
[2021-05-10 16:46] LABS: INR 0.99 (0.87-1.13)
[2021-05-10 17:06] LABS: Calcium 9.1 mg/dL (8.4-10.2)
== END 2021-05-10 18:10 | disposition home or self-care (01) ==
LOC: ED 14:57
DX: I12.0 Hypertensive chronic kidney disease with stage 5 chronic kidney disease or end stage renal disease (principal); N18.6 End stage renal disease; Z91.15 Patient's noncompliance with renal dialysis; Z99.2 Dependence on renal dialysis
CPT/HCPCS: 36415; 80048; 85027; 85610; 99283

== ENCOUNTER 2021-05-12 04:33 | Inpatient (IN) | payer MEDICARE ==
--- NOTE | 2021-05-12 05:37 | XRay Report ---
CHEST 1 VIEW INDICATION / CLINICAL INFORMATION: chest pain. COMPARISON: None available. FINDINGS: SUPPORT DEVICES: Possible PATHOLOGY COLLECTOR shunt tubing left chest not well visualized within the mediastinum or be low. HEART / MEDIASTINUM: Heart upper limits of normal in size. LUNGS / PLEURA: No significant pulmonary or pleural abnormality. No pneumothorax. ADDITIONAL FINDINGS: Patient rotated to the right. IMPRESSION: 1. No active cardiopulmonary disease. Signer Name: Pop Clark II, MD Signed: 05/12/2021 5:33 AM Workstation Name: [id number]
[2021-05-12 05:41] LABS: Basophils # (Auto) 0.1 K/mm3 (0.0-0.1); Basophils % (Auto) 0.9 % (0.0-1.8); Eosinophils # (Auto) 0.5 K/mm3 (0.0-0.4); Eosinophils % (Auto) 5.6 % (0.0-4.3); Hemoglobin 10.5 gm/dl (11.8-15.2); Lymphocytes # (Auto) 0.6 K/mm3 (1.2-5.4); Lymphocytes % (Auto) 6.1 % (13.4-35.0); Mean Corpuscular HGB Conc 34 % (32-34); Mean Corpuscular Volume 89 fl (84-94); Monocytes # (Auto) 0.8 K/mm3 (0.0-0.8); Monocytes % (Auto) 8.7 % (0.0-7.3); Platelet Count 143 K/mm3 (140-440); Red Blood Count 3.48 M/mm3 (3.65-5.03); Red Cell Distribution Width 16.7 % (13.2-15.2)
[2021-05-12 05:49] LABS: Creatine Kinase MB 4.7 ng/mL (0.0-4.0); INR 1.08 (0.87-1.13)
[2021-05-12 05:50] LABS: Calcium 8.8 mg/dL (8.4-10.2)
[2021-05-12 06:02] LABS: Bilirubin,Urine NEG (Negative); Blood,Urine SM (Negative); Color,Urine Yellow (Yellow); Protein,Urine >500 mg/dL (Negative); Urobilinogen,Urine < 2.0 mg/dL (<2.0)
[2021-05-12 06:09] LABS: Chol/HDL Ratio 2.9 %
--- NOTE | 2021-05-12 06:30 | Emergency Department Report ---
ED Chest Pain HPI - General Chief Complaint: Chest Pain Stated Complaint: LT NECK AND CHEST PAIN PUI?: No Time Seen by Provider: 05/12/21 06:22 Source: patient, EMS Mode of arrival: Stretcher Limitations: No Limitations - History of Present Illness Initial Comments: Chief complaint: "I have this dull pain. I thought I was having a heart attack." HPI: This is a 51-year-old male with a history of hypertension, end-stage renal disease on hemodialysis, hemorrhagic CVA who presents with left chest pain rating to the neck. Sudden onset while resting at home. No association with exertion or eating. He denies associated shortness of breath or vomiting. The dull pain lasted several hours. Pain is now subsiding. He has persistent mild pain at the left neck where his OPERATIONS INSPECTOR shunt is located. OPERATIONS INSPECTOR shunt was placed 1 month ago at [place] to "relieve pressure on the optic nerve". No history of heart attack. He does have history of tachycardia. MD Complaint: chest pain -: Sudden, This morning Onset: during rest Pain Location: left chest Pain Radiation: neck Severity scale (0 -10): 0 Quality: dull Consistency: now resolved Improves With: nothing Worsens With: nothing Context: other (Last month diagnosed with hemorrhagic CVA) re: denies: nausea, vomting Other Symptoms: denies: cough Treatments Prior to Arrival: none - Related Data Home Medications Medication Instructions Recorded Confirmed Last Taken AtorvaSTATin [Lipitor] 40 mg PO QHS 05/12/21 05/12/21 Unknown Cimetidine 1 tab PO DAILY 05/12/21 05/12/21 Unknown Hydralazine HCl 50 mg PO TID 05/12/21 05/12/21 Unknown Labetalol HCl [Labetalol 300mg TAB] 300 mg PO BID 05/12/21 05/12/21 Unknown NIFEdipine [Nifedipine ER] 90 mg PO 05/12/21 Unknown Sevelamer Carbonate [Renvela] 800 mg PO TIDWM 05/12/21 05/12/21 Unknown Sucroferric Oxyhydroxide(Nf) 500 mg PO TID 05/12/21 05/12/21 Unknown [Velphoro (Nf)] Torsemide [Demadex] 100 mg PO QDAY 05/12/21 05/12/21 Unknown Vit B Comp No.3/Folic/C/Biotin 1 each PO 05/12/21 Unknown [Ines-David Rx Tablet] Warfarin [Coumadin] 5 mg PO QDAY 05/12/21 05/12/21 Unknown acetaZOLAMIDE 125 mg PO BID 05/12/21 05/12/21 Unknown amLODIPine [Norvasc] 10 mg PO DAILY 05/12/21 05/12/21 Unknown hydrOXYzine PAMOATE [Vistaril] 25 mg PO Q6HR 05/12/21 05/12/21 Unknown levETIRAcetam [Keppra TAB] 250 mg PO BID 05/12/21 05/12/21 Unknown levETIRAcetam [Keppra TAB] 500 mg PO BID 05/12/21 05/12/21 Unknown Allergies Allergy/AdvReac Type Severity Reaction Status Date / Time promethazine [From Phenergan] Allergy Nausea Verified 05/12/21 04:43 Heart Score - HEART Score History: Moderately suspicious EKG: Non-specific Age: 45-65 Risk factors: > 3 risk factors or hx of atherosclerotic disease Troponin: < normal limit HEART Score: 5 - EKG Read Time Time EKG Completed: 06:13 EKG Read Time: 06:13 - Critical Actions Critical Actions: 4-6 pts:12-16.6% risk of adverse cardiac event. Should be admitted ED Review of Systems ROS: Stated complaint: LT NECK AND CHEST PAIN Other details as noted in HPI Comment: All other systems reviewed and negative Constitutional: denies: chills, fever, malaise Respiratory: denies: cough, shortness of breath Cardiovascular: chest pain Gastrointestinal: denies: abdominal pain, nausea, vomiting Skin: denies: rash, lesions ED Past Medical Hx - Past Medical History Previous Medical History?: Yes Hx Hypertension: Yes Hx CVA: Yes (Hemorrhagic CVA) Hx Kidney Stones: Yes (ESRD) Additional medical history: AAA, BRAIN BLEED - Surgical History Past Surgical History?: Yes Additional Surgical History: Left upper extremity fistula - Family History Family history: hypertension - Social History Smoking Status: Never Smoker Substance Use Type: None - Medications Home Medications: Home Medications Medication Instructions Recorded Confirmed Last Taken Type AtorvaSTATin [Lipitor] 40 mg PO QHS 05/12/21 05/12/21 Unknown History Cimetidine 1 tab PO DAILY 05/12/21 05/12/21 Unknown History Hydralazine HCl 50 mg PO TID 05/12/21 05/12/21 Unknown History Labetalol HCl [Labetalol 300mg TAB] 300 mg PO BID 05/12/21 05/12/21 Unknown History NIFEdipine [Nifedipine ER] 90 mg PO 05/12/21 Unknown History Sevelamer Carbonate [Renvela] 800 mg PO TIDWM 05/12/21 05/12/21 Unknown History Sucroferric Oxyhydroxide(Nf) 500 mg PO TID 05/12/21 05/12/21 Unknown History [Velphoro (Nf)] Torsemide [Demadex] 100 mg PO QDAY 05/12/21 05/12/21 Unknown History Vit B Comp No.3/Folic/C/Biotin 1 each PO 05/12/21 Unknown History [Ines-David Rx Tablet] Warfarin [Coumadin] 5 mg PO QDAY 05/12/21 05/12/21 Unknown History acetaZOLAMIDE 125 mg PO BID 05/12/21 05/12/21 Unknown History amLODIPine [Norvasc] 10 mg PO DAILY 05/12/21 05/12/21 Unknown History hydrOXYzine PAMOATE [Vistaril] 25 mg PO Q6HR 05/12/21 05/12/21 Unknown History levETIRAcetam [Keppra TAB] 250 mg PO BID 05/12/21 05/12/21 Unknown History levETIRAcetam [Keppra TAB] 500 mg PO BID 05/12/21 05/12/21 Unknown History ED Physical Exam - General Limitations: No Limitations General appearance: alert, in no apparent distress - Head Head exam: Present: atraumatic, normocephalic - Eye Eye exam: Present: normal appearance - ENT ENT exam: Present: mucous membranes moist - Neck Neck exam: Present: normal inspection, full ROM, other (OPERATIONS INSPECTOR shunt catheter intact). Absent: tenderness, meningismus, lymphadenopathy, thyromegaly - Respiratory Respiratory exam: Present: normal lung sounds bilaterally. Absent: respiratory distress, wheezes, rales - Cardiovascular Cardiovascular Exam: Present: regular rate, normal rhythm, normal heart sounds. Absent: systolic murmur, diastolic murmur, rubs, gallop - GI/Abdominal GI/Abdominal exam: Present: soft, normal bowel sounds. Absent: distended, tenderness, guarding, rebound - Rectal Rectal exam: Present: deferred - Extremities Exam Extremities exam: Present: other (Left forearm AV fistula present). Absent: pedal edema - Neurological Exam Neurological exam: Present: alert, oriented X3 - Psychiatric Psychiatric exam: Present: normal affect, normal mood - Skin Skin exam: Present: warm, dry, intact, normal color. Absent: rash ED Course Vital Signs 05/12/21 05/12/21 05/12/21 04:39 05:01 05:05 Temperature 98.7 F 98.0 F Pulse Rate 70 71 Respiratory 18 13 18 Rate Blood Pressure Blood Pressure 157/92 157/92 [Right] O2 Sat by Pulse 100 97 Oximetry 05/12/21 05/12/21 05/12/21 06:00 07:37 07:41 Temperature 98.5 F Pulse Rate 70 Respiratory 10 L Rate Blood Pressure 152/90 Blood Pressure [Right] O2 Sat by Pulse 97 96 Oximetry 05/12/21 08:00 Temperature Pulse Rate 66 Respiratory 8 L Rate Blood Pressure 161/91 Blood Pressure [Right] O2 Sat by Pulse 94 Oximetry - Reevaluation(s) Reevaluation #1: 05/12/21 08:28 Shortly after patient was admitted to the hospitalist service, he told the nurse "I have a neurological issue. You are not addressing my headache." Patient developed headache during ED encounter. He did not have a headache upon arrival. I have ordered CT head to rule out hydrocephalus or intracranial hemorrhage. Pain control with IV Zofran IV morphine and Tylenol also ordered. ED Medical Decision Making - Lab Data Result diagrams: 05/12/21 05:10 05/12/21 05:10 - EKG Data -: EKG Interpreted by Me EKG shows normal: sinus rhythm Rate: normal - EKG Data 05/12/21 06:29 EKG obtained 013 EKG interpreted by me Normal sinus rhythm rate 70 bpm left axis deviation right bundle branch block no ST elevation prolonged QTC - Radiology Data Radiology results: report reviewed Patient Name: NICOLE RAYA Gender: Male Date of : 1970 Referring Provider: RONALD YEPEZ Organization: [facility] Accession Number: [id number] Requested Date: May 12, 2021 05:01 Report Status: Final Requested Procedure: 1 Procedure Description: XR chest 1V ap Modality: XR Findings Reporting MD: Pop Clark Dictation Time: May 12, 2021 04:33 Spar Machine Operator: Not available Mold Maker Date: CHEST 1 VIEW INDICATION / CLINICAL INFORMATION: chest pain. COMPARISON: None available. FINDINGS: SUPPORT DEVICES: Possible OPERATIONS INSPECTOR shunt tubing left chest not well visualized within the mediastinum or below. HEART / MEDIASTINUM: Heart upper limits of normal in size. LUNGS / PLEURA: No significant pulmonary or pleural abnormality. No p neumothorax. ADDITIONAL FINDINGS: Patient rotated to the right. IMPRESSION: 1. No active cardiopulmonary disease. Signer Name: Pop Clark II, MD Patient Name: NICOLE RAYA Gender: Male Date of : 1970 Referring Provider: AMBROSIO MARQUES Organization: [facility] Accession Number: [id number] Requested Date: May 12, 2021 08:27 Report Status: Final Requested Procedure: 1 Procedure Description: CT head/brain wo con Modality: CT Findings Reporting MD: Koko Bender Dictation Time: May 12, 2021 08:01 Spar Machine Operator: Not available Mold Maker Date: CT BRAIN: 05/12/2021 INDICATION / CLINICAL INFORMATION: svp business development shunt headache hx of ICH. COMPARISON: CT brain 04/29/2021 FINDINGS: BRAIN/INTRACRANIAL STRUCTURES: Unenhanced CT images of the brain were obtained and compared to the prior exam from 04/29/2021. Again seen is the left frontal shunt tube, which extends through left frontal edema and hemorrhagic change. The hemorrhagic area associated along the course of the shunt tube in the left frontal lobe is of somewhat decreased density compared to the prior exam, although this density is somewhat larger and overall extent, now with a maximum length of 3.2 cm as compared to 2.6 cm. This is likely related to normal evolutionary changes in the previous hemorrhage. The overall extent of surrounding vasogenic edema is also slightly increased. The metallic densities in the right occipital scalp and calvarium, including the region of the right sigmoid sinus are again noted, presumably due to prior injury or treatment. EXTRACRANIAL STRUCTURES: Unremarkable. IMPRESSION: Hemorrhagic and edematous changes along the course of the left frontal shunt tube, and pattern most likely due to expected evolutionary changes compared to 04/29/2021. All CT scans at this location are performed using dose reduction to ALARA by means of automated exposure control. Signer Name: Koko Bender MD Signed: 05/12/2021 8:01 AM Workstation Name: [id number] - Medical Decision Making 1. Acute coronary syndrome: Patient heart score 5, elevated troponin unclear if this represents acute myocardial injury in the setting of end-stage renal disease. Patient is currently pain-free. He received aspirin in emergency department. Will be admitted for cardiac evaluation. 2. End-stage renal disease on hemodialysis: No indication for emergent dialysis. Potassium within normal range. No acidosis. Normal mental status. 3. Tension headache: CT head did not show new neurological insult, evolving previous hemorrhage present. Patient is admitted to our service in stable condition. Critical care attestation.: If time is entered above; I have spent that time in minutes in the direct care of this critically ill patient, excluding procedure time. ED Disposition Clinical Impression: Acute coronary syndrome, End-stage renal disease on hemodialysis, History of hemorrhagic cerebrovascular accident (CVA) without residual deficits Disposition: 09 ADMITTED INPATIENT Is pt being admited?: Yes Does the pt Need Aspirin: No Condition: Stable
[2021-05-12] MEDS ORDERED: ASPIRIN 81 MG TAB CHEW PO ONE (07:30)
[2021-05-12] MEDS ORDERED: ACETAMINOPHEN 500 MG TAB PO ONE (08:27)
[2021-05-12] MEDS ORDERED: MORPHINE 4 MG/1 ML INJ IV ONE (08:27)
[2021-05-12] MEDS ORDERED: ONDANSETRON 4 MG/2 ML INJ IV ONE (08:27)
--- NOTE | 2021-05-12 08:44 | History and Physical Report ---
History of Present Illness Date of examination: 05/12/21 Chief complaint: Headache and chest pain History of present illness: This patient is a 51-year-old male with history of ESRD on HD, PBX MECHANIC shunt to relieve ocular pressure, and hypertension who presented to the emergency department with complaints of chest pain. The patient reported sharp, substernal chest pain which awoken him out of his sleep earlier this morning. The pain radiated to the left side of his neck. He denies associated shortness of breath, palpitations, radiation to arm or jaw, and diaphoresis. He has never had chest pain like that before. The chest pain resolved prior to coming to the emergency department. While in the ED, the patient reports having a left-sided headache that felt pressure-like. He has never had headaches similar nature before. He continues to have the left-sided neck pain that is reproducible on exam. He had a PBX MECHANIC shunt placed at [place] approximately 1 month ago. He also reports a recent hemorrhagic stroke. He has not followed up with neurosurgery post shunt placement. He is unable to recall his last hemodialysis session. He reports going to dialysis on Wednesday and not being dialyzed due to being late. On admission vital signs were stable. Labs were notable for Normocytic anemia, troponin 0.180 BUN 79 and SCR 14.1. EKG was noted with no acute ST changes. CT head was ordered and showed PBX MECHANIC shunt with postsurgical changes. Nephrology and cardiology were consulted in the ED. Patient was admitted for further care. Past History Past Medical History: dialysis, ESRD, hypertension Past Surgical History: Other (AV fistula placement, PBX MECHANIC shunt placement) Social history: no significant social history, lives with family Family history: no significant family history Medications and Allergies Allergies Allergy/AdvReac Type Severity Reaction Status Date / Time promethazine [From Phenergan] Allergy Nausea Verified 05/12/21 04:43 Home Medications Medication Instructions Recorded Confirmed Last Taken Type Albuterol Sulfate [Proventil Hfa] 2 puff PO Q6H PRN 05/12/21 05/12/21 Unknown History AtorvaSTATin [Lipitor] 40 mg PO QHS 05/12/21 05/12/21 Unknown History Hydralazine HCl 100 mg PO Q8H 05/12/21 05/12/21 Unknown History Labetalol HCl [Labetalol 300mg TAB] 600 mg PO Q8H 05/12/21 05/12/21 Unknown History NIFEdipine [Nifedipine ER] 90 mg PO QDAY 05/12/21 05/12/21 Unknown History Sevelamer Carbonate [Renvela] 1,600 mg PO TIDWM 05/12/21 05/12/21 Unknown History Torsemide [Demadex] 100 mg PO QDAY 05/12/21 05/12/21 Unknown History Warfarin [Coumadin] 5 mg PO QDAY 05/12/21 05/12/21 Unknown History amLODIPine [Norvasc] 10 mg PO DAILY 05/12/21 05/12/21 Unknown History hydrOXYzine PAMOATE [Vistaril] 25 mg PO Q6HR 05/12/21 05/12/21 Unknown History levETIRAcetam [Keppra TAB] 250 mg PO 3XW 05/12/21 05/12/21 Unknown History levETIRAcetam [Keppra TAB] 500 mg PO Q12H 05/12/21 05/12/21 Unknown History Active Meds: Active Medications Acetaminophen (Acetaminophen 325 Mg Tab) 650 mg PO Q4H PRN PRN Reason: Pain MILD(1-3)/Fever >100.5/MERRITT Heparin Sodium (Porcine) (Heparin 5,000 Unit/1 Ml Vial) 5,000 unit SUB-Q Q12HR MIKEL Morphine Sulfate (Morphine 4 Mg/1 Ml Inj) 4 mg IV Q4H PRN PRN Reason: Pain , Severe (7-10) Naloxone HCl (Naloxone 0.4 Mg/1 Ml Inj) 0.1 mg IV Q2MIN PRN PRN Reason: Res Rate </= 8 or 02 SAT < 92% Ondansetron HCl (Ondansetron 4 Mg/2 Ml Inj) 4 mg IV Q8H PRN PRN Reason: Nausea And Vomiting Oxycodone/Acetaminophen (Oxycodone /Acetaminophen 5-325mg Tab) 1 tab PO Q6H PRN PRN Reason: Pain, Moderate (4-6) Sodium Chloride (Sodium Chloride 0.9% 10 Ml Flush Syringe) 10 ml IV BID MIKEL Sodium Chloride (Sodium Chloride 0.9% 10 Ml Flush Syringe) 10 ml IV PRN PRN PRN Reason: LINE FLUSH Review of Systems Constitutional: no weight loss, no weight gain, no fever, no chills, no night sweats, no anorexia, no fatigue, no weakness, no poor appetite Ears, nose, mouth and throat: deferred Cardiovascular: chest pain, high blood pressure, no orthopnea, no palpitations, no rapid/irregular heart beat, no edema, no lightheadedness, no dyspnea on exertion, no paroxysmal nocturnal dyspnea Respiratory: no cough with sputum, no hemoptysis, no congestion, no wheezing, no pain Gastrointestinal: nausea, vomiting, constipation, no abdominal pain, no diarrhea, no change in bowel habits, no loss of appetite, no early satiety Genitourinary Male: no dysuria, no flank pain Musculoskeletal: neck pain, no neck stiffness, no shooting arm pain, no low back pain, no morning stiffness, no muscle cramps, no frequent falls Integumentary: deferred Neurological: headaches, no head injury, no parathesias, no numbness, no tingling, no seizures, no syncope, no migraines, no change in speech, no change in mentation Psychiatric: no memory loss, no sleep disturbances, no suicidal ideation, no depression Endocrine: no cold intolerance, no heat intolerance, no polydipsia, no polyuria Exam - Physical Exam Narrative exam: GENERAL: Well-developed well-nourished. In no acute distress. HEENT: Postsurgical scar on left side of head. NECK: PBX MECHANIC shunt palpated along left side of the neck.. Mildly tender to palpation. CHEST/LUNGS: CTAB on room air HEART/CARDIOVASCULAR: RRR. No murmur, rubs or gallops appreciated. ABDOMEN: Umbilical hernia. +BS. NT. Mildly distended, but soft. SKIN: No rashes noted. NEURO: No focal motor deficit. Follows all commands. MUSCULOSKELETAL: No joint effusion EXTREMITIES: No cyanosis, clubbing. Left upper extremity with nodular AV fistula. PSYCH: Cooperative. - Constitutional Vitals: Temp Pulse Resp BP Pulse Ox 98.5 F 66 8 L 161/91 94 05/12/21 07:37 05/12/21 08:00 05/12/21 08:00 05/12/21 08:00 05/12/21 08:00 HEART Score - HEART Score EKG: Non-specific Age: 45-65 Risk factors: > 3 risk factors or hx of atherosclerotic disease Troponin: Troponin T 0.180 ng/mL (0.00-0.029) H* 05/12/21 05:10 Troponin: < normal limit - Critical Actions Critical Actions: 4-6 pts:12-16.6% risk of adverse cardiac event. Should be admitted Results - Labs CBC & Chem 7: 05/12/21 05:10 05/13/21 05:12 Labs: Laboratory Last Values WBC 9.2 K/mm3 (4.5-11.0) 05/12/21 05:10 RBC 3.48 M/mm3 (3.65-5.03) L 05/12/21 05:10 Hgb 10.5 gm/dl (11.8-15.2) L 05/12/21 05:10 Hct 31.0 % (35.5-45.6) L 05/12/21 05:10 MCV 89 fl (84-94) 05/12/21 05:10 MCH 30 pg (28-32) 05/12/21 05:10 MCHC 34 % (32-34) 05/12/21 05:10 RDW 16.7 % (13.2-15.2) H 05/12/21 05:10 Plt Count 143 K/mm3 (140-440) 05/12/21 05:10 Lymph % (Auto) 6.1 % (13.4-35.0) L 05/12/21 05:10 [place] % (Auto) 8.7 % (0.0-7.3) H 05/12/21 05:10 Eos % (Auto) 5.6 % (0.0-4.3) H 05/12/21 05:10 Baso % (Auto) 0.9 % (0.0-1.8) 05/12/21 05:10 Lymph # (Auto) 0.6 K/mm3 (1.2-5.4) L 05/12/21 05:10 [place] # (Auto) 0.8 K/mm3 (0.0-0.8) 05/12/21 05:10 Eos # (Auto) 0.5 K/mm3 (0.0-0.4) H 05/12/21 05:10 Baso # (Auto) 0.1 K/mm3 (0.0-0.1) 05/12/21 05:10 Seg Neutrophils % 78.7 % (40.0-70.0) H 05/12/21 05:10 Seg Neutrophils # 7.2 K/mm3 (1.8-7.7) 05/12/21 05:10 PT 15.2 Sec. (12.2-14.9) H 05/12/21 05:10 INR 1.08 (0.87-1.13) 05/12/21 05:10 Sodium 139 mmol/L (137-145) 05/12/21 05:10 Potassium 4.7 mmol/L (3.6-5.0) 05/12/21 05:10 Chloride 96.7 mmol/L (98-107) L 05/12/21 05:10 Carbon Dioxide 22 mmol/L (22-30) 05/12/21 05:10 Anion Gap 25 mmol/L 05/12/21 05:10 BUN 79 mg/dL (9-20) H 05/12/21 05:10 Creatinine 14.1 mg/dL (0.8-1.3) H 05/12/21 05:10 Estimated GFR 5 ml/min 05/12/21 05:10 BUN/Creatinine Ratio 6 % 05/12/21 05:10 Glucose 162 mg/dL (75-100) H 05/12/21 05:10 Calcium 8.8 mg/dL (8.4-10.2) 05/12/21 05:10 Total Creatine Kinase 146 units/L (55-170) 05/12/21 05:10 CK-MB (CK-2) 4.7 ng/mL (0.0-4.0) H 05/12/21 05:10 CK-MB (CK-2) Rel Index 3.2 (0-4) 05/12/21 05:10 Troponin T 0.180 ng/mL (0.00-0.029) H* 05/12/21 05:10 Triglycerides 88 mg/dL (2-149) 05/12/21 05:10 Cholesterol 96 mg/dL (50-199) 05/12/21 05:10 LDL Cholesterol Direct 45 mg/dL (50-130) L 05/12/21 05:10 HDL Cholesterol 33 mg/dL (40-59) L 05/12/21 05:10 Cholesterol/HDL Ratio 2.90 % 05/12/21 05:10 Urine Color Yellow (Yellow) 05/12/21 05:08 Urine Turbidity Clear (Clear) 05/12/21 05:08 Urine pH 8.0 (5.0-7.0) H 05/12/21 05:08 Ur Specific [place] 1.013 (1.003-1.030) 05/12/21 05:08 Urine Protein >500 mg/dL (Negative) 05/12/21 05:08 Urine Glucose (UA) 150 mg/dL (Negative) 05/12/21 05:08 Urine Ketones Neg mg/dL (Negative) 05/12/21 05:08 Urine Blood Sm (Negative) 05/12/21 05:08 Urine Nitrite Neg (Negative) 05/12/21 05:08 Urine Bilirubin Neg (Negative) 05/12/21 05:08 Urine Urobilinogen < 2.0 mg/dL (<2.0) 05/12/21 05:08 Ur Leukocyte Esterase Neg (Negative) 05/12/21 05:08 Urine WBC (Auto) 3.0 /HPF (0.0-6.0) 05/12/21 05:08 Urine RBC (Auto) 2.0 /HPF (0.0-6.0) 05/12/21 05:08 U Epithel Cells (Auto) < 1.0 /HPF (0-13.0) 05/12/21 05:08 - Imaging and Cardiology EKG: image reviewed Chest x-ray: image reviewed CT Scan - head: image reviewed Assessment and Plan Assessment and plan: #End-stage renal disease requiring dialysis -Patient reportedly missing hemodialysis, currently on TTS schedule -Will need HD today -Nephrology consulted, assistance appreciated -Avoid nephrotoxins and renally dose all medications #NSTEMI #Noncardiac chest pain -Troponin 0.180, EKG without acute ST changes -Likely type II NSTEMI due to renal disease -Chest pain resolved, likely referred from neck -Cardiology consulted, assistance appreciated #Headache #History of hemorrhagic stroke #History of papilledema s/p PBX MECHANIC shunt placement -CT head obtained, please see full report -Patient reports hemorrhagic stroke and PBX MECHANIC shunt recently placed at [place] -Neurosurgeon Dr. Gonzalez was consulted and recommended transferring patient to [facility] -I spoke with Dr. Ezra Salvador, A neurosurgeon at [place] and associate of the physician who placed the PBX MECHANIC shunt. He stated that it was highly unlikely that the patient's shunt is malfunctioning due to how recently it was placed and its indication. PBX MECHANIC shunt was placed after the patient began having vision loss secondary to papilledema. We discussed the CT findings. The patient has been noncompliant in the past and has not yet followed up in clinic. -Patient will need to schedule outpatient appointment with neurosurgeon at [place] -We will continue aspirin and atorvastatin #Hypertension -Blood pressure stable at time of admission -We will resume home blood pressure medications -Goal as SBP while inpatient is less than 160 #Normocytic anemia -Likely anemia of ESRD -Transfuse for hemoglobin less than 7 #Advanced care planning -Disease education conducted, care plan discussed, diagnoses discussed, prognosis discussed, and patient acknowledges understanding with care plan -Time: +30 min Advance Directives: No VTE prophylaxis?: Chemical Plan of care discussed with patient/family: Yes
[2021-05-12] MEDS ORDERED: MORPHINE 4 MG/1 ML INJ IV PRN (09:00)
[2021-05-12] MEDS ORDERED: ONDANSETRON 4 MG/2 ML INJ IV PRN (09:00)
[2021-05-12] MEDS ORDERED: NALOXONE 0.4 MG/1 ML INJ IV PRN (09:00)
[2021-05-12] MEDS ORDERED: oxyCODONE /ACETAMINOPHEN 5-325MG TAB PO PRN (09:00)
[2021-05-12] MEDS ORDERED: ACETAMINOPHEN 325 MG TAB PO PRN (09:00)
--- NOTE | 2021-05-12 09:05 | Cat Scan Report ---
CT BRAIN: 05/12/2021 INDICATION / CLINICAL INFORMATION: svp digital ad sales shunt headache hx of ICH. COMPARISON: CT brain 04/29/2021 FINDINGS: BRAIN/INTRACRANIAL STRUCTURES: Unenhanced CT images of the brain were obtained and compared to the pr ior exam from 04/29/2021. Again seen is the left frontal shunt tube, which extends through left frontal edema and hemorrhagic c hange. The hemorrhagic area associated along the course of the shunt tube in the left frontal lobe is of somewhat decreased density compared to the prior exam, although this density is somewhat larger a nd overall extent, now with a maximum length of 3.2 cm as compared to 2.6 cm. This is likely related to normal evolutionary changes in the previous hemorrhage. The overall extent of surrounding vasogeni c edema is also slightly increased. The metallic densities in the right occipital scalp and calvarium, including the region of the right sigmoid sinus are again noted, presumably due to prior injury or treatment. EXTRACRANIAL STRUCTURES: Unremarkable. IMPRESSION: Hemorrhagic and edematous changes along the course of the left frontal shunt tube, and pattern most likely due to expected evolutionary changes compared to 04/29/2021. All CT scans at this location are performed using dose reduction to ALARA by means of automated expos ure control. Signer Name: Koko Bender MD Signed: 05/12/2021 9:01 AM Workstation Name: [id number]
--- NOTE | 2021-05-12 11:27 | Consultation ---
History of Present Illness - Reason for Consult Consult date: 05/12/21 end stage renal disease - History of Present Illness The patient with ESRD on HD was admitted for worsening chest pain and cardiology evaluation. CT of the head wasnegative for acute intracranial process. Chest X- ray was negative. Renal consult was requested for management of HD while inpatient Past History Past Medical History: ESRD, hypertension Medications and Allergies Allergies Allergy/AdvReac Type Severity Reaction Status Date / Time promethazine [From Phenergan] Allergy Nausea Verified 05/12/21 04:43 Home Medications Medication Instructions Recorded Confirmed Last Taken Type Albuterol Sulfate [Proventil Hfa] 2 puff PO Q6H PRN 05/12/21 05/12/21 Unknown History AtorvaSTATin [Lipitor] 40 mg PO QHS 05/12/21 05/12/21 Unknown History Hydralazine HCl 100 mg PO Q8H 05/12/21 05/12/21 Unknown History Labetalol HCl [Labetalol 300mg TAB] 600 mg PO Q8H 05/12/21 05/12/21 Unknown History NIFEdipine [Nifedipine ER] 90 mg PO QDAY 05/12/21 05/12/21 Unknown History Sevelamer Carbonate [Renvela] 1,600 mg PO TIDWM 05/12/21 05/12/21 Unknown History Torsemide [Demadex] 100 mg PO QDAY 05/12/21 05/12/21 Unknown History Warfarin [Coumadin] 5 mg PO QDAY 05/12/21 05/12/21 Unknown History amLODIPine [Norvasc] 10 mg PO DAILY 05/12/21 05/12/21 Unknown History hydrOXYzine PAMOATE [Vistaril] 25 mg PO Q6HR 05/12/21 05/12/21 Unknown History levETIRAcetam [Keppra TAB] 250 mg PO 3XW 05/12/21 05/12/21 Unknown History levETIRAcetam [Keppra TAB] 500 mg PO Q12H 05/12/21 05/12/21 Unknown History Active Meds: Active Medications Acetaminophen (Acetaminophen 325 Mg Tab) 650 mg PO Q4H PRN PRN Reason: Pain MILD(1-3)/Fever >100.5/MERRITT Heparin Sodium (Porcine) (Heparin 5,000 Unit/1 Ml Vial) 5,000 unit SUB-Q Q12HR MIKEL Morphine Sulfate (Morphine 4 Mg/1 Ml Inj) 4 mg IV Q4H PRN PRN Reason: Pain , Severe (7-10) Naloxone HCl (Naloxone 0.4 Mg/1 Ml Inj) 0.1 mg IV Q2MIN PRN PRN Reason: Res Rate </= 8 or 02 SAT < 92% Ondansetron HCl (Ondansetron 4 Mg/2 Ml Inj) 4 mg IV Q8H PRN PRN Reason: Nausea And Vomiting Oxycodone/Acetaminophen (Oxycodone /Acetaminophen 5-325mg Tab) 1 tab PO Q6H PRN PRN Reason: Pain, Moderate (4-6) Sodium Chloride (Sodium Chloride 0.9% 10 Ml Flush Syringe) 10 ml IV BID MIKEL Sodium Chloride (Sodium Chloride 0.9% 10 Ml Flush Syringe) 10 ml IV PRN PRN PRN Reason: LINE FLUSH Review of Systems All systems: negative (chest pain) Exam - Vital Signs Vital signs: Vital Signs Temp Pulse Resp BP Pulse Ox 98.7 F 70 18 157/92 100 05/12/21 04:39 05/12/21 04:39 05/12/21 04:39 05/12/21 04:39 05/12/21 04:39 Results - Lab Results 05/12/21 05:10 05/12/21 05:10 Most recent lab results Calcium 8.8 mg/dL (8.4-10.2) 05/12/21 05:10 Assessment and Plan ESRD on HD Chest Pain headaches HD today for clearance and volume removal Pt is agreeable with HD while inpatient will assess HD needs daily Renally dose meds Strict I&O
[2021-05-12] MEDS ORDERED: DEXTROSE 10% *Hypoglycemia IV ONE (11:43)
[2021-05-12 13:06] LABS: Hepatitis B Surface Antigen Non-Reactive (Negative); Hepatitis C Virus Antibody Non-Reactive (NonReactive)
[2021-05-12] MEDS: HEPARIN 5,000 UNIT/1 ML VIAL SUB-Q SCH ×2 (13:18→22:02)
--- NOTE | 2021-05-12 14:14 | Consultation ---
History of Present Illness Consult date: 05/12/21 Consult reason: chest pain History of present illness: The patient is a 51-year-old man with end-stage renal disease on hemodialysis and chronic hypertension. No prior cardiac history. A month ago, he suffered a hemorrhagic CVA associated with uncontrolled hypertension. He was treated at [facility] and ultimately had a RIVETER shunt running down the left side of the neck. He presents now, with pain along the course of the RIVETER shunt from the neck into the chest. His pain is associated with movements of the head and neck. There is no induration, and no unusual tenderness. In the emergency room, ECG was normal sinus rhythm with right bundle branch block, no acute ST or T wave changes. However, the troponin level was mildly elevated at 0.18, in the setting of end- stage renal disease with a creatinine of 14. Cardiac consultation was requested for cardiac assessment. Patient is currently comfortable, says he feels fine and would like to be discharged from the emergency room. His chest x-ray here showed borderline cardiomegaly and clear lungs. Past History Past Medical History: ESRD, hypertension, stroke Medications and Allergies Allergies Allergy/AdvReac Type Severity Reaction Status Date / Time promethazine [From Phenergan] Allergy Nausea Verified 05/12/21 04:43 Home Medications Medication Instructions Recorded Confirmed Last Taken Type Albuterol Sulfate [Proventil Hfa] 2 puff PO Q6H PRN 05/12/21 05/12/21 Unknown History AtorvaSTATin [Lipitor] 40 mg PO QHS 05/12/21 05/12/21 Unknown History Hydralazine HCl 100 mg PO Q8H 05/12/21 05/12/21 Unknown History Labetalol HCl [Labetalol 300mg TAB] 600 mg PO Q8H 05/12/21 05/12/21 Unknown History NIFEdipine [Nifedipine ER] 90 mg PO QDAY 05/12/21 05/12/21 Unknown History Sevelamer Carbonate [Renvela] 1,600 mg PO TIDWM 05/12/21 05/12/21 Unknown History Torsemide [Demadex] 100 mg PO QDAY 05/12/21 05/12/21 Unknown History Warfarin [Coumadin] 5 mg PO QDAY 05/12/21 05/12/21 Unknown History amLODIPine [Norvasc] 10 mg PO DAILY 05/12/21 05/12/21 Unknown History hydrOXYzine PAMOATE [Vistaril] 25 mg PO Q6HR 05/12/21 05/12/21 Unknown History levETIRAcetam [Keppra TAB] 250 mg PO 3XW 05/12/21 05/12/21 Unknown History levETIRAcetam [Keppra TAB] 500 mg PO Q12H 05/12/21 05/12/21 Unknown History Active Meds: Active Medications Acetaminophen (Acetaminophen 325 Mg Tab) 650 mg PO Q4H PRN PRN Reason: Pain MILD(1-3)/Fever >100.5/MERRITT Heparin Sodium (Porcine) (Heparin 5,000 Unit/1 Ml Vial) 5,000 unit SUB-Q Q12HR [facility] Last Admin: 05/12/21 13:18 Dose: Not Given Morphine Sulfate (Morphine 4 Mg/1 Ml Inj) 4 mg IV Q4H PRN PRN Reason: Pain , Severe (7-10) Naloxone HCl (Naloxone 0.4 Mg/1 Ml Inj) 0.1 mg IV Q2MIN PRN PRN Reason: Res Rate </= 8 or 02 SAT < 92% Ondansetron HCl (Ondansetron 4 Mg/2 Ml Inj) 4 mg IV Q8H PRN PRN Reason: Nausea And Vomiting Oxycodone/Acetaminophen (Oxycodone /Acetaminophen 5-325mg Tab) 1 tab PO Q6H PRN PRN Reason: Pain, Moderate (4-6) Sodium Chloride (Sodium Chloride 0.9% 10 Ml Flush Syringe) 10 ml IV BID [facility] Last Admin: 05/12/21 13:18 Dose: Not Given Sodium Chloride (Sodium Chloride 0.9% 10 Ml Flush Syringe) 10 ml IV PRN PRN PRN Reason: LINE FLUSH Review of Systems Cardiovascular: chest pain, other (Left neck pain), no orthopnea, no palpitations, no rapid/irregular heart beat, no edema, no syncope, no lightheadedness, no shortness of breath Physical Examination Vital Signs Temp Pulse Resp BP Pulse Ox 98.7 F 70 18 157/92 100 05/12/21 04:39 05/12/21 04:39 05/12/21 04:39 05/12/21 04:39 05/12/21 04:39 General appearance: no acute distress HEENT: Positive: PERRL Neck: Positive: neck supple Cardiac: Positive: Reg Rate and Rhythm Lungs: Positive: Decreased Breath Sounds Neuro: Positive: Grossly Intact Abdomen: Positive: Soft Male genitourinary: Positive: deferred Skin: Positive: Clear Extremities: Absent: edema Results 05/12/21 05:10 05/12/21 05:10 Cardiac Enzymes 05/12/21 Range/Units 05:10 CK-MB (CK-2) 4.7 H (0.0-4.0) ng/mL Coagulation 05/12/21 Range/Units 05:10 PT 15.2 H (12.2-14.9) Sec. INR 1.08 (0.87-1.13) Lipids 05/12/21 Range/Units 05:10 Triglycerides 88 (2-149) mg/dL Cholesterol 96 (50-199) mg/dL HDL Cholesterol 33 L (40-59) mg/dL Cholesterol/HDL Ratio 2.90 % CBC 05/12/21 Range/Units 05:10 WBC 9.2 (4.5-11.0) K/mm3 RBC 3.48 L (3.65-5.03) M/mm3 Hgb 10.5 L (11.8-15.2) gm/dl Hct 31.0 L (35.5-45.6) % Plt Count 143 (140-440) K/mm3 Lymph # (Auto) 0.6 L (1.2-5.4) K/mm3 [place] # (Auto) 0.8 (0.0-0.8) K/mm3 Eos # (Auto) 0.5 H (0.0-0.4) K/mm3 Baso # (Auto) 0.1 (0.0-0.1) K/mm3 Comprehensive Metabolic Panel 05/12/21 Range/Units 05:10 Sodium 139 (137-145) mmol/L Potassium 4.7 (3.6-5.0) mmol/L Chloride 96.7 L (98-107) mmol/L Carbon Dioxide 22 (22-30) mmol/L BUN 79 H (9-20) mg/dL Creatinine 14.1 H (0.8-1.3) mg/dL Glucose 162 H (75-100) mg/dL Calcium 8.8 (8.4-10.2) mg/dL EKG interpretations - Telemetry EKG Rhythm: Sinus Rhythm Assessment and Plan - Patient Problems (1) Chest pain Current Visit: Yes Status: Acute Plan to address problem: Patient has predominantly left-sided neck pain, associated with it because of his RIVETER shunt implanted recently. Pain is aggravated by movements of the head and neck. No indication of angina pectoris or cardiac related chest pain. Troponin level of 0.18 is likely nonspecific finding in the setting of his end- stage renal disease. I will recommend another set of troponin levels, I will request his records from [facility] for review of any prior cardiac work-up, otherwise conservative cardiac management and follow-up at this time.
[2021-05-12] MEDS ORDERED: NON-FORMULARY EACH (Nifedipine [Nifedipine Er] 90 MG Tablet.Er) PO SCH (15:45)
[2021-05-12] MEDS ORDERED: NON-FORMULARY EACH (Hydralazine Hcl [Hydralazine Hcl] 50 MG Tablet) PO SCH (15:45)
[2021-05-12] MEDS ORDERED: NON-FORMULARY EACH (Labetalol Hcl [Labetalol 300mg Tab] 300 MG Tablet) PO SCH (15:45)
[2021-05-12] MEDS: hydrOXYzine PAMOATE 25 MG CAP PO SCH (18:02)
[2021-05-12] MEDS: SEVELAMER CARBONATE 800 MG TAB PO SCH (18:02)
[2021-05-12] MEDS: NIFEdipine XL 90 MG TAB PO SCH ×2 (18:02→19:45)
[2021-05-12] MEDS: amLODIPine 10 MG TAB PO SCH ×2 (18:02→18:45)
[2021-05-12] MEDS: hydrALAZINE 100 MG TAB PO SCH (22:02)
[2021-05-13] MEDS: hydrOXYzine PAMOATE 25 MG CAP PO SCH ×3 (01:06→15:04)
[2021-05-13] MEDS: hydrALAZINE 100 MG TAB PO SCH ×2 (05:32→15:23)
[2021-05-13 06:15] LABS: Calcium 8.8 mg/dL (8.4-10.2)
--- NOTE | 2021-05-13 07:55 | Progress Note ---
Assessment and Plan Assessment and plan: #NSTEMI #Noncardiac chest pain -Troponin 0.180-0.[address] changes -Likely type II NSTEMI due to renal disease -Chest pain resolved, cardiology following #Headache #History of hemorrhagic stroke #History of papilledema s/p APIARIST shunt placement -CT head obtained, please see full report -Patient reports hemorrhagic stroke and APIARIST shunt recently placed at [facility] -Neurosurgeon Dr. Gonzalez was consulted and recommended transferring patient to [facility] -I spoke with Dr. Ezra Salvador, A neurosurgeon at [facility] and associate of the physician who placed the APIARIST shunt. He stated that it was highly unlikely that the patient's shunt is malfunctioning due to how recently it was placed and its indication. APIARIST shunt was placed after the patient began having vision loss secondary to papilledema. We discussed the CT findings. The patient has been noncompliant in the past and has not yet followed up in clinic. -Patient will need to schedule outpatient appointment with neurosurgeon at [facility] at discharge -We will continue aspirin and atorvastatin Please consult neurology #End-stage renal disease requiring dialysis -Patient reportedly missing hemodialysis, currently on TTS schedule HD per schedule, nephrology following Avoid nephrotoxins, renal dosing of medications #Hypertension -Blood pressure stable at time of admission -We will resume home blood pressure medications -Goal as SBP while inpatient is less than 160 #Normocytic anemia -Likely anemia of ESRD -Transfuse for hemoglobin less than 7 #Advanced care planning -Disease education conducted, care plan discussed, diagnoses discussed, prognosis discussed, and patient acknowledges understanding with care plan -Time: +30 min Advance Directives: No VTE prophylaxis?: Chemical Plan of care discussed with patient/family: Yes Hospitalist Physical - Constitutional Vitals: Temp Pulse Resp BP Pulse Ox 98.7 F 81 18 163/93 100 05/13/21 05:00 05/13/21 05:32 05/13/21 05:00 05/13/21 05:32 05/13/21 05:00 General appearance: Present: no acute distress HEART Score - HEART Score EKG: Non-specific Age: 45-65 Risk factors: > 3 risk factors or hx of atherosclerotic disease Troponin: Troponin T 0.211 ng/mL (0.00-0.029) H* 05/13/21 06:16 Troponin: < normal limit - Critical Actions Critical Actions: 4-6 pts:12-16.6% risk of adverse cardiac event. Should be admitted Results - Labs CBC & Chem 7: 05/12/21 05:10 05/13/21 05:12 Labs: Laboratory Last Values WBC 9.2 K/mm3 (4.5-11.0) 05/12/21 05:10 RBC 3.48 M/mm3 (3.65-5.03) L 05/12/21 05:10 Hgb 10.5 gm/dl (11.8-15.2) L 05/12/21 05:10 Hct 31.0 % (35.5-45.6) L 05/12/21 05:10 MCV 89 fl (84-94) 05/12/21 05:10 MCH 30 pg (28-32) 05/12/21 05:10 MCHC 34 % (32-34) 05/12/21 05:10 RDW 16.7 % (13.2-15.2) H 05/12/21 05:10 Plt Count 143 K/mm3 (140-440) 05/12/21 05:10 Lymph % (Auto) 6.1 % (13.4-35.0) L 05/12/21 05:10 [place] % (Auto) 8.7 % (0.0-7.3) H 05/12/21 05:10 Eos % (Auto) 5.6 % (0.0-4.3) H 05/12/21 05:10 Baso % (Auto) 0.9 % (0.0-1.8) 05/12/21 05:10 Lymph # (Auto) 0.6 K/mm3 (1.2-5.4) L 05/12/21 05:10 [place] # (Auto) 0.8 K/mm3 (0.0-0.8) 05/12/21 05:10 Eos # (Auto) 0.5 K/mm3 (0.0-0.4) H 05/12/21 05:10 Baso # (Auto) 0.1 K/mm3 (0.0-0.1) 05/12/21 05:10 Seg Neutrophils % 78.7 % (40.0-70.0) H 05/12/21 05:10 Seg Neutrophils # 7.2 K/mm3 (1.8-7.7) 05/12/21 05:10 PT 15.2 Sec. (12.2-14.9) H 05/12/21 05:10 INR 1.08 (0.87-1.13) 05/12/21 05:10 Sodium 140 mmol/L (137-145) 05/13/21 05:12 Potassium 4.6 mmol/L (3.6-5.0) 05/13/21 05:12 Chloride 98.1 mmol/L (98-107) 05/13/21 05:12 Carbon Dioxide 26 mmol/L (22-30) 05/13/21 05:12 Anion Gap 21 mmol/L 05/13/21 05:12 BUN 48 mg/dL (9-20) H 05/13/21 05:12 Creatinine 10.9 mg/dL (0.8-1.3) H 05/13/21 05:12 Estimated GFR 6 ml/min 05/13/21 05:12 BUN/Creatinine Ratio 4 % 05/13/21 05:12 Glucose 85 mg/dL (75-100) 05/13/21 05:12 Calcium 8.8 mg/dL (8.4-10.2) 05/13/21 05:12 Total Creatine Kinase 146 units/L (55-170) 05/12/21 05:10 CK-MB (CK-2) 4.7 ng/mL (0.0-4.0) H 05/12/21 05:10 CK-MB (CK-2) Rel Index 3.2 (0-4) 05/12/21 05:10 Troponin T 0.211 ng/mL (0.00-0.029) H* 05/13/21 06:16 Triglycerides 88 mg/dL (2-149) 05/12/21 05:10 Cholesterol 96 mg/dL (50-199) 05/12/21 05:10 LDL Cholesterol Direct 45 mg/dL (50-130) L 05/12/21 05:10 HDL Cholesterol 33 mg/dL (40-59) L 05/12/21 05:10 Cholesterol/HDL Ratio 2.90 % 05/12/21 05:10 Urine Color Yellow (Yellow) 05/12/21 05:08 Urine Turbidity Clear (Clear) 05/12/21 05:08 Urine pH 8.0 (5.0-7.0) H 05/12/21 05:08 Ur Specific [place] 1.013 (1.003-1.030) 05/12/21 05:08 Urine Protein >500 mg/dL (Negative) 05/12/21 05:08 Urine Glucose (UA) 150 mg/dL (Negative) 05/12/21 05:08 Urine Ketones Neg mg/dL (Negative) 05/12/21 05:08 Urine Blood Sm (Negative) 05/12/21 05:08 Urine Nitrite Neg (Negative) 05/12/21 05:08 Urine Bilirubin Neg (Negative) 05/12/21 05:08 Urine Urobilinogen < 2.0 mg/dL (<2.0) 05/12/21 05:08 Ur Leukocyte Esterase Neg (Negative) 05/12/21 05:08 Urine WBC (Auto) 3.0 /HPF (0.0-6.0) 05/12/21 05:08 Urine RBC (Auto) 2.0 /HPF (0.0-6.0) 05/12/21 05:08 U Epithel Cells (Auto) < 1.0 /HPF (0-13.0) 05/12/21 05:08 Hepatitis A IgM Ab Non-reactive (NonReactive) 05/12/21 09:07 Hep Bs Antigen Non-reactive (Negative) 05/12/21 09:07 Hep B Core IgM Ab Non-reactive (NonReactive) 05/12/21 09:07 Hepatitis C Antibody Non-reactive (NonReactive) 05/12/21 09:07 Street/IV: Voiding Method Urinal Active Medications - Current Medications Current Medications: Generic Name Dose Route Start Last Admin Trade Name Freq PRN Reason Stop Dose Admin Acetaminophen 650 mg 05/12/21 09:00 Acetaminophen 325 Mg Tab PO Q4H PRN Pain MILD(1-3)/Fever >100.5/MERRITT Atorvastatin Calcium 40 mg 05/12/21 22:00 05/12/21 22:02 Atorvastatin 40 Mg Tab PO 40 mg QHS MIKEL Administration Heparin Sodium (Porcine) 5,000 unit 05/12/21 10:00 05/12/21 22:02 Heparin 5,000 Unit/1 Ml Vial SUB-Q 5,000 unit Q12HR MIKEL Administration Hydralazine HCl 100 mg 05/12/21 22:00 05/13/21 05:32 Hydralazine 100 Mg Tab PO 100 mg Q8HR MIKEL Administration Hydroxyzine Pamoate 25 mg 05/12/21 18:00 05/13/21 06:05 Hydroxyzine Pamoate 25 Mg Cap PO Not Given Q6HR MIKEL Labetalol HCl 600 mg 05/12/21 22:00 05/13/21 05:32 Labetalol 200 Mg Tab PO 600 mg Q8HR MIKEL Administration Morphine Sulfate 4 mg 05/12/21 09:00 Morphine 4 Mg/1 Ml Inj IV Q4H PRN Pain , Severe (7-10) Naloxone HCl 0.1 mg 05/12/21 09:00 Naloxone 0.4 Mg/1 Ml Inj IV Q2MIN PRN Res Rate </= 8 or 02 SAT < 92% Nifedipine 90 mg 05/12/21 18:00 05/12/21 19:45 Nifedipine Xl 90 Mg Tab PO 90 mg QDAY MIKEL Administration Ondansetron HCl 4 mg 05/12/21 09:00 Ondansetron 4 Mg/2 Ml Inj IV Q8H PRN Nausea And Vomiting Oxycodone/Acetaminophen 1 tab 05/12/21 09:00 Oxycodone /Acetaminophen 5-325mg Tab PO Q6H PRN Pain, Moderate (4-6) Sevelamer Carbonate 1,600 mg 05/12/21 17:00 05/12/21 18:02 Sevelamer Carbonate 800 Mg Tab PO Not Given TIDWM MIKEL Sodium Chloride 10 ml 05/12/21 10:00 05/13/21 00:18 Sodium Chloride 0.9% 10 Ml Flush Syringe IV 10 ml BID MIKEL Administration Sodium Chloride 10 ml 05/12/21 09:00 Sodium Chloride 0.9% 10 Ml Flush Syringe IV PRN PRN LINE FLUSH
--- NOTE | 2021-05-13 09:32 | Consultation ---
History of Present Illness - Reason for Consult end stage renal disease - History of Present Illness Very pleasant 51-year-old -[place] male with a past medical history of end-stage renal disease in the setting of biopsy-proven IgG4 glomerulopathy along with history of hypertension and ELECTRONIC WIRER shunt placed for increased intraocular pressures, presented to the emergency department secondary to head and chest pain. Patient describes it as pain near the site of his ELECTRONIC WIRER shunt that radiates down to his chest. Unclear of eliciting factors. Symptom free in this morning. Nephrology consulted for chronic dialysis needs. Patient typically is on a Wednesday//Wednesday hemodialysis schedule. Patient did miss his last dialysis schedule on Wednesday. Did have a session done yesterday [facility]. Pending possible discharge today based on further cardiology recommendations. Past History Past Medical History: dialysis, ESRD, hypertension Past Surgical History: Other (AV fistula placement, ELECTRONIC WIRER shunt placement) Social history: no significant social history, lives with family Family history: no significant family history Medications and Allergies Allergies Allergy/AdvReac Type Severity Reaction Status Date / Time promethazine [From Phenergan] Allergy Nausea Verified 05/12/21 04:43 Home Medications Medication Instructions Recorded Confirmed Last Taken Type Albuterol Sulfate [Proventil Hfa] 2 puff PO Q6H PRN 05/12/21 05/12/21 Unknown History AtorvaSTATin [Lipitor] 40 mg PO QHS 05/12/21 05/12/21 Unknown History Hydralazine HCl 100 mg PO Q8H 05/12/21 05/12/21 Unknown History Labetalol HCl [Labetalol 300mg TAB] 600 mg PO Q8H 05/12/21 05/12/21 Unknown History NIFEdipine [Nifedipine ER] 90 mg PO QDAY 05/12/21 05/12/21 Unknown History Sevelamer Carbonate [Renvela] 1,600 mg PO TIDWM 05/12/21 05/12/21 Unknown History Torsemide [Demadex] 100 mg PO QDAY 05/12/21 05/12/21 Unknown History Warfarin [Coumadin] 5 mg PO QDAY 05/12/21 05/12/21 Unknown History amLODIPine [Norvasc] 10 mg PO DAILY 05/12/21 05/12/21 Unknown History hydrOXYzine PAMOATE [Vistaril] 25 mg PO Q6HR 05/12/21 05/12/21 Unknown History levETIRAcetam [Keppra TAB] 250 mg PO 3XW 05/12/21 05/12/21 Unknown History levETIRAcetam [Keppra TAB] 500 mg PO Q12H 05/12/21 05/12/21 Unknown History Active Meds: Active Medications Acetaminophen (Acetaminophen 325 Mg Tab) 650 mg PO Q4H PRN PRN Reason: Pain MILD(1-3)/Fever >100.5/MERRITT Atorvastatin Calcium (Atorvastatin 40 Mg Tab) 40 mg PO QHS [facility] Last Admin: 05/12/21 22:02 Dose: 40 mg Heparin Sodium (Porcine) (Heparin 5,000 Unit/1 Ml Vial) 5,000 unit SUB-Q Q12HR [facility] Last Admin: 05/12/21 22:02 Dose: 5,000 unit Hydralazine HCl (Hydralazine 100 Mg Tab) 100 mg PO Q8HR [facility] Last Admin: 05/13/21 05:32 Dose: 100 mg Hydroxyzine Pamoate (Hydroxyzine Pamoate 25 Mg Cap) 25 mg PO Q6HR [facility] Last Admin: 05/13/21 06:05 Dose: Not Given Labetalol HCl (Labetalol 200 Mg Tab) 600 mg PO Q8HR [facility] Last Admin: 05/13/21 05:32 Dose: 600 mg Morphine Sulfate (Morphine 4 Mg/1 Ml Inj) 4 mg IV Q4H PRN PRN Reason: Pain , Severe (7-10) Naloxone HCl (Naloxone 0.4 Mg/1 Ml Inj) 0.1 mg IV Q2MIN PRN PRN Reason: Res Rate </= 8 or 02 SAT < 92% Nifedipine (Nifedipine Xl 90 Mg Tab) 90 mg PO QDAY [facility] Last Admin: 05/12/21 19:45 Dose: 90 mg Ondansetron HCl (Ondansetron 4 Mg/2 Ml Inj) 4 mg IV Q8H PRN PRN Reason: Nausea And Vomiting Oxycodone/Acetaminophen (Oxycodone /Acetaminophen 5-325mg Tab) 1 tab PO Q6H PRN PRN Reason: Pain, Moderate (4-6) Sevelamer Carbonate (Sevelamer Carbonate 800 Mg Tab) 1,600 mg PO TIDWM [facility] Last Admin: 05/12/21 18:02 Dose: Not Given Sodium Chloride (Sodium Chloride 0.9% 10 Ml Flush Syringe) 10 ml IV BID MIKEL Last Admin: 05/13/21 00:18 Dose: 10 ml Sodium Chloride (Sodium Chloride 0.9% 10 Ml Flush Syringe) 10 ml IV PRN PRN PRN Reason: LINE FLUSH Review of Systems All systems: negative Neurological: headaches Exam - Vital Signs Vital signs: Vital Signs Temp Pulse Resp BP Pulse Ox 98.7 F 70 18 157/92 100 05/12/21 04:39 05/12/21 04:39 05/12/21 04:39 05/12/21 04:39 05/12/21 04:39 - General Appearance General appearance: well-developed, appears stated age EENT: ATNC Neck: Present: neck supple, trachea midline Respiratory: Clear to Ascultation, Normal Exam Heart: regular Gastrointestinal: Present: normal Integumentary: no rash, warm and dry Neurologic: no focal deficit, alert and oriented x3 Musculoskeletal: Present: deferred Psychiatric: cooperative Results - Lab Results 05/12/21 05:10 05/13/21 05:12 Most recent lab results Calcium 8.8 mg/dL (8.4-10.2) 05/13/21 05:12 Assessment and Plan - Patient Problems (1) Chest pain Current Visit: Yes Status: Acute Plan to address problem: Currently chest pain-free at this time. Only mild elevations noted in troponin. Pending further cardiology recommendations. (2) End-stage renal disease on hemodialysis Current Visit: Yes Status: Chronic Plan to address problem: Patient did receive hemodialysis treatment yesterday as part of a make-up session being that he missed his Wednesday treatment. He typically is on Wednesday//Wednesday hemodialysis schedule and in order to place him back on his regular sessions I will write order for dialysis again today. Patient is in agreements. From nephrology standpoint if he remains clinically stable post hemodialysis treatment and no further cardiac evaluations are planned then he can be discharged and we will follow up with him in the outpatient dialysis unit. (3) Hypertensive chronic kidney disease with stage 5 chronic kidney disease or end stage renal disease Current Visit: Yes Status: Chronic Plan to address problem: Monitor blood pressures under current regimen. (4) Anemia in chronic kidney disease (CKD) Current Visit: Yes Status: Acute Plan to address problem: MOHAN therapy with dialysis
[2021-05-13] MEDS: HEPARIN 5,000 UNIT/1 ML VIAL SUB-Q SCH (09:48)
[2021-05-13] MEDS: NIFEdipine XL 90 MG TAB PO SCH (09:49)
[2021-05-13] MEDS: SEVELAMER CARBONATE 800 MG TAB PO SCH ×3 (09:52→16:32)
[2021-05-13] MEDS ORDERED: SODIUM CHLORIDE 0.9% 100 ML IV PRN (10:00)
--- NOTE | 2021-05-13 10:23 | Electrocardiograph Report ---
[facility] Test Date: 2021-05-12 Test Time: 06:13:56 Pat Name: NICOLE RAYA Department: Room: A474 Gender: M Pals Nurse: HOLLIE : 1970 Requested By: RONALD YEPEZ Order Number: [id number] Reading MD: Mamadou Anton Measurements Intervals [place] Rate: 69 P: 44 RI: 207 QRS: -37 QRSD: 166 T: 26 QT: 461 QTc: 494 Interpretive Statements Sinus rhythm Borderline prolonged RI interval Right bundle branch block No previous ECG available for comparison Electronically Signed On 05-13-2021 10:22:30 EST by Mamadou Anton
--- NOTE | 2021-05-13 12:22 | Progress Note ---
Assessment and Plan - Patient Problems (1) Chest pain Current Visit: Yes Status: Acute Plan to address problem: Patient has predominantly left-sided neck pain, along the course of his ADMINISTRATIVE SUPPORT MANAGER shunt implanted recently. Pain is aggravated by movements of the head and neck. No indication of angina pectoris or cardiac related chest pain. Troponin level of 0.18-0.2 likely a nonspecific finding in the setting of his end-stage renal disease. Conservative cardiac management and follow-up at this time. Subjective Date of service: 05/13/21 Principal diagnosis: Neck pain Interval history: Patient is planned for dialysis today, no new cardiac complaints, no cardiac events reported. Objective Vital Signs Temp Pulse Resp BP BP Pulse Ox Pulse Ox 05/13/21 12:00 61 129/74 05/13/21 11:51 95 05/13/21 11:45 66 122/74 05/13/21 11:30 66 131/72 05/13/21 11:15 66 144/81 05/13/21 11:00 66 129/73 05/13/21 10:45 68 138/80 05/13/21 10:32 65 133/78 05/13/21 10:17 98.3 F 66 18 123/77 97 05/13/21 08:11 0 L 151/101 05/13/21 08:01 0 L 151/101 05/13/21 07:51 0 L 151/101 05/13/21 07:41 0 L 151/101 05/13/21 07:37 98.0 F 66 109/72 94 05/13/21 07:31 0 L 151/101 05/13/21 07:21 0 L 151/101 05/13/21 07:11 0 L 151/101 05/13/21 07:01 0 L 151/101 05/13/21 06:51 0 L 151/101 05/13/21 06:41 0 L 151/101 05/13/21 06:31 0 L 151/101 05/13/21 06:21 0 L 151/101 05/13/21 06:11 0 L 151/101 05/13/21 06:01 0 L 151/101 05/13/21 05:51 0 L 151/101 05/13/21 05:41 0 L 151/101 05/13/21 05:32 81 163/93 05/13/21 05:31 0 L 151/101 05/13/21 05:21 0 L 151/101 05/13/21 05:11 0 L 151/101 05/13/21 05:01 0 L 151/101 05/13/21 05:00 98.7 F 81 18 163/93 100 05/13/21 04:51 0 L 151/101 05/13/21 04:41 0 L 151/101 05/13/21 04:31 0 L 151/101 05/13/21 04:21 0 L 151/101 05/13/21 04:11 0 L 151/101 05/13/21 04:01 0 L 151/101 05/13/21 03:51 0 L 151/101 05/13/21 03:41 0 L 151/101 05/13/21 03:31 0 L 151/101 05/13/21 03:21 0 L 151/101 05/13/21 03:11 0 L 151/101 05/13/21 03:01 0 L 151/101 05/13/21 02:51 0 L 151/101 05/13/21 02:41 0 L 151/101 05/13/21 02:31 0 L 151/101 05/13/21 02:25 100 05/13/21 02:21 0 L 151/101 05/13/21 02:11 0 L 151/101 05/13/21 02:01 0 L 151/101 05/13/21 01:51 0 L 151/101 05/13/21 01:41 0 L 151/101 05/13/21 01:31 0 L 151/101 05/13/21 01:21 0 L 151/101 05/13/21 01:11 0 L 151/101 05/13/21 01:01 0 L 151/101 05/13/21 01:00 86 05/13/21 00:51 0 L 151/101 05/13/21 00:41 0 L 151/101 05/13/21 00:31 0 L 151/101 05/13/21 00:21 0 L 151/101 05/13/21 00:11 0 L 151/101 05/13/21 00:00 98.8 F 68 20 141/87 05/12/21 22:10 68 189/103 05/12/21 21:49 98 F 68 18 189/103 99 05/12/21 21:26 98.9 F 72 20 187/115 97 05/12/21 20:40 70 185/120 05/12/21 20:30 63 187/95 05/12/21 20:15 69 188/106 05/12/21 20:00 70 182/105 05/12/21 19:45 70 182/108 05/12/21 19:30 67 192/107 05/12/21 19:15 71 186/114 05/12/21 19:00 75 199/109 05/12/21 18:45 73 186/107 05/12/21 18:30 70 192/108 05/12/21 18:15 69 193/107 05/12/21 18:00 68 0 L 182/109 05/12/21 17:45 71 182/110 05/12/21 17:40 71 184/99 05/12/21 17:25 97.8 F 20 L 22 187/102 97 05/12/21 16:00 0 L 165/98 87 05/12/21 14:00 0 L 165/90 91 - Physical Examination General: No Apparent Distress HEENT: Positive: PERRL Neck: Positive: neck supple, trachea midline Cardiac: Positive: Reg Rate and Rhythm Lungs: Positive: Decreased Breath Sounds Neuro: Positive: Grossly Intact Abdomen: Positive: Soft Skin: Positive: Clear Extremities: Absent: edema - Labs and Meds Comprehensive Metabolic Panel 05/13/21 Range/Units 05:12 Sodium 140 (137-145) mmol/L Potassium 4.6 (3.6-5.0) mmol/L Chloride 98.1 (98-107) mmol/L Carbon Dioxide 26 (22-30) mmol/L BUN 48 H (9-20) mg/dL Creatinine 10.9 H (0.8-1.3) mg/dL Glucose 85 (75-100) mg/dL Calcium 8.8 (8.4-10.2) mg/dL - Imaging and Cardiology EKG: image reviewed
[2021-05-13 15:22] VITALS: BP 148/81
--- NOTE | 2021-05-13 17:03 | Discharge Summary ---
Providers - Providers Date of Admission: 05/12/21 08:35 Date of discharge: 05/13/21 Attending physician: GARTH LAMB 05/12/21 08:35 Consult to Physician [CONS] Routine Comment: Consulting Provider: SUZIE BROWNING Physician Instructions: Reason For Exam: ESRD requiring HD 05/12/21 08:39 Consult to Physician [CONS] Routine Comment: Consulting Provider: MADELEINE CH Physician Instructions: Reason For Exam: nstemi, CP Primary care physician: CHRIS CROW Hospitalization Condition: Stable Hospital course: #NSTEMI #Noncardiac chest pain -Troponin 0.180-0.[address] changes -Likely type II NSTEMI due to renal disease -Chest pain resolved, cardiology following #Headache #History of hemorrhagic stroke #History of papilledema s/p DATA ANALYST shunt placement -CT head obtained, please see full report -Patient reports hemorrhagic stroke and DATA ANALYST shunt recently placed at [facility] -Neurosurgeon Dr. Gonzalez was consulted and recommended transferring patient to [facility] -I spoke with Dr. Ezra Salvador, A neurosurgeon at [facility] and associate of the physician who placed the DATA ANALYST shunt. He stated that it was highly unlikely that the patient's shunt is malfunctioning due to how recently it was placed and its indication. DATA ANALYST shunt was placed after the patient began having vision loss secondary to papilledema. We discussed the CT findings. The patient has been noncompliant in the past and has not yet followed up in clinic. -Patient will need to schedule outpatient appointment with neurosurgeon at [facility] at discharge -We will continue aspirin and atorvastatin Please consult neurology #End-stage renal disease requiring dialysis -Patient reportedly missing hemodialysis, currently on TTS schedule HD per schedule, nephrology following Avoid nephrotoxins, renal dosing of medications #Hypertension -Blood pressure stable at time of admission -We will resume home blood pressure medications -Goal as SBP while inpatient is less than 160 #Normocytic anemia -Likely anemia of ESRD -Transfuse for hemoglobin less than 7 #Advanced care planning -Disease education conducted, care plan discussed, diagnoses discussed, prognosis discussed, and patient acknowledges understanding with care plan -Time: +30 min Final Discharge Diagnosis (Prints w/discharge instructions): Non-ST elevation WI. Noncardiac chest pain. Headache. History of hemorrhagic stroke. History of papilledema status post DATA ANALYST shunt placement. End-stage renal disease on hemodialysis. Hypertension. Normocytic anemia Core Measure Documentation - Palliative Care Palliative Care/ Comfort Measures: Not Applicable - Core Measures Any of the following diagnoses?: none Exam - Constitutional Vitals: Temp Pulse Resp BP Pulse Ox 98.3 F 71 20 148/81 93 05/13/21 15:20 05/13/21 15:20 05/13/21 15:20 05/13/21 15:20 05/13/21 15:20 General appearance: Present: no acute distress, well-nourished - EENT Eyes: Present: PERRL, EOM intact - Neck Neck: Present: supple, normal ROM - Respiratory Respiratory effort: normal Respiratory: bilateral: diminished, negative: rales, rhonchi, wheezing - Cardiovascular Rhythm: regular Heart Sounds: Present: S1 & S2 - Extremities Extremities: no ischemia, No edema - Abdominal General gastrointestinal: Present: soft, non-tender, non-distended, normal bowel sounds - Integumentary Integumentary: Present: clear, warm - Musculoskeletal Musculoskeletal: strength equal bilaterally, generalized weakness - Psychiatric Psychiatric: appropriate mood/affect, cooperative - Neurologic Neurologic: moves all extremities Plan Activity: advance as tolerated, fall precautions Diet: other (Cardiac diet) Additional Instructions: Follow renal/hemodialysis per schedule TTS. Advised to follow your private neurologist/neurosurgeon/well surveying engineer at [facility] per schedule. Follow primary care physician in 1 week. If you have worsening symptoms contact MD or go to the nearest emergency room as needed. Fall precautions. Follow up with: CHRIS CROW MD [Primary Care Provider] - 7 Days MONIKA LOCK MD [Staff Physician] - 7 Days MADELEINE CH MD [Staff Physician] - 7 Days Forms: AMA Form
== END 2021-05-13 18:52 | disposition home or self-care (01) | DRG 280 ==
LOC: ED 04:33 → 4A 08:35
PROVIDERS: ADMIT Student in an Organized Health Care Education/Training Program; ATTEND Internal Medicine
PROC: 5A1D70Z Performance of Urinary Filtration, Intermittent, Less than 6 Hours Per Day (ICD-10-PCS; principal; 2021-05-12)
PROC: 5A1D70Z Performance of Urinary Filtration, Intermittent, Less than 6 Hours Per Day (ICD-10-PCS; 2021-05-13)
DX: R07.89 Other chest pain (principal); N18.6 End stage renal disease; I21.A1 Myocardial infarction type 2; I12.0 Hypertensive chronic kidney disease with stage 5 chronic kidney disease or end stage renal disease; Z99.2 Dependence on renal dialysis; Z86.73 Personal history of transient ischemic attack (TIA), and cerebral infarction without residual deficits; Z79.01 Long term (current) use of anticoagulants; D63.1 Anemia in chronic kidney disease
CPT/HCPCS: 36415; 70450; 71045; 80048; 80061; 80074; 81001; 82550; 82553; 84484; 85025; 85027; 85610; 93005; 99283; G0378; J3490; J1644; J2270; J2405

== ENCOUNTER 2021-11-14 03:21 | Emergency (ER) | payer MEDICARE ==
--- NOTE | 2021-11-14 04:59 | Event Note ---
Date: 11/14/21 chest pain dull started yesterday dull radiates to the back, AAA gets checked once a year, last checked February 2021, pt compliant with medications pt has CRF with dilaysis Wednesday and wednesday
--- NOTE | 2021-11-14 05:37 | XRay Report ---
CHEST 1 VIEW INDICATION / CLINICAL INFORMATION: Chest Pain STUDY TIME: 515 COMPARISON: 05/12/2021 FINDINGS: SUPPORT DEVICES: None HEART / MEDIASTINUM: Mild cardiomegaly LUNGS / PLEURA: Mildly congested appearance is noted. Bibasilar atelectatic changes are seen. Possibl e developing patchy infiltrate is seen in the left base though this could relate to the congestive pr ocess. No definite pleural effusions. No pneumothorax. ADDITIONAL FINDINGS: No significant additional findings. Signer Name: Andrew Lewis MD Signed: 11/14/2021 5:33 AM Workstation Name: [id number]
[2021-11-14 06:10] LABS: Hemoglobin 14.2 gm/dl (11.8-15.2); Mean Corpuscular HGB Conc 33 % (32-34); Mean Corpuscular Volume 96 fl (84-94); Platelet Count 137 K/mm3 (140-440); Red Blood Count 4.49 M/mm3 (3.65-5.03)
[2021-11-14 06:12] LABS: Red Cell Distribution Width 25.2 % (13.2-15.2)
[2021-11-14 06:20] LABS: INR 0.97 (0.87-1.13)
[2021-11-14 06:31] LABS: Hemolysis Index 990
[2021-11-14 06:32] LABS: Blood Urea Nitrogen TNR mg/dL (9-20)
[2021-11-14 06:33] LABS: Alanine Aminotransferase TNR units/L (7-56); Albumin TNR g/dL (3.9-5); BUN/Creatinine Ratio TNR; Calcium TNR mg/dL (8.4-10.2)
[2021-11-14 07:01] LABS: Basophils % (Manual) 0 % (0.0-1.8); Platelet Estimate Consistent w Auto; Total Cells Counted 100
[2021-11-14 09:22] LABS: Albumin 4.5 g/dL (3.9-5); Calcium 9.5 mg/dL (8.4-10.2)
--- NOTE | 2021-11-14 09:32 | Emergency Department Report ---
ED Chest Pain HPI - General Chief Complaint: Chest Pain Stated Complaint: CHEST PAIN Time Seen by Provider: 11/14/21 07:15 Source: EMS Mode of arrival: Stretcher Limitations: No Limitations - History of Present Illness Initial Comments: Patient is a 51-year-old male presenting to ED with complaint of sharp chest pain radiating to his back that began at approximately 230 this morning. States his symptoms are now resolved. He he has history of chronic kidney disease and is on dialysis Wednesday and Wednesday. Last dialysis session was yesterd ay. - Related Data Home Medications Medication Instructions Recorded Confirmed Last Taken Albuterol Sulfate [Proventil Hfa] 2 puff PO Q6H PRN 05/12/21 05/12/21 Unknown AtorvaSTATin [Lipitor] 40 mg PO QHS 05/12/21 05/12/21 Unknown Hydralazine HCl 100 mg PO Q8H 05/12/21 05/12/21 Unknown Labetalol HCl [Labetalol 300mg TAB] 600 mg PO Q8H 05/12/21 05/12/21 Unknown NIFEdipine [Nifedipine ER] 90 mg PO QDAY 05/12/21 05/12/21 Unknown Sevelamer Carbonate [Renvela] 1,600 mg PO TIDWM 05/12/21 05/12/21 Unknown Torsemide [Demadex] 100 mg PO QDAY 05/12/21 05/12/21 Unknown amLODIPine 10 mg PO DAILY 05/12/21 05/12/21 Unknown hydrOXYzine PAMOATE [Vistaril] 25 mg PO Q6HR 05/12/21 05/12/21 Unknown levETIRAcetam [Keppra TAB] 250 mg PO 3XW 05/12/21 05/12/21 Unknown levETIRAcetam [Keppra TAB] 500 mg PO Q12H 05/12/21 05/12/21 Unknown Allergies Allergy/AdvReac Type Severity Reaction Status Date / Time promethazine [From Phenergan] Allergy Nausea Verified 05/12/21 04:43 Heart Score - HEART Score History: Slightly suspicious EKG: Non-specific Age: 45-65 Risk factors: 1-2 risk factors Troponin: > 3x normal limit HEART Score: 5 - EKG Read Time Time EKG Completed: 03:41 EKG Read Time: 03:45 - Critical Actions Critical Actions: 4-6 pts:12-16.6% risk of adverse cardiac event. Should be admitted ED Review of Systems ROS: Stated complaint: CHEST PAIN Other details as noted in HPI Constitutional: denies: chills, fever Respiratory: denies: cough, shortness of breath, wheezing Cardiovascular: chest pain. denies: palpitations Gastrointestinal: denies: abdominal pain, nausea, diarrhea Musculoskeletal: denies: back pain, joint swelling, arthralgia Skin: denies: rash, lesions Neurological: denies: headache, weakness, paresthesias Psychiatric: denies: anxiety, depression ED Past Medical Hx - Past Medical History Previous Medical History?: Yes Hx Hypertension: Yes Hx CVA: Yes (Hemorrhagic CVA) Hx Congestive Heart Failure: No Hx Diabetes: No Hx Kidney Stones: Yes (ESRD) Hx Asthma: No Hx COPD: No Additional medical history: AAA, BRAIN BLEED - Surgical History Past Surgical History?: Yes Additional Surgical History: Left upper extremity fistula - Social History Smoking Status: Unknown if ever smoked - Medications Home Medications: Home Medications Medication Instructions Recorded Confirmed Last Taken Type Albuterol Sulfate [Proventil Hfa] 2 puff PO Q6H PRN 05/12/21 05/12/21 Unknown History AtorvaSTATin [Lipitor] 40 mg PO QHS 05/12/21 05/12/21 Unknown History Hydralazine HCl 100 mg PO Q8H 05/12/21 05/12/21 Unknown History Labetalol HCl [Labetalol 300mg TAB] 600 mg PO Q8H 05/12/21 05/12/21 Unknown History NIFEdipine [Nifedipine ER] 90 mg PO QDAY 05/12/21 05/12/21 Unknown History Sevelamer Carbonate [Renvela] 1,600 mg PO TIDWM 05/12/21 05/12/21 Unknown History Torsemide [Demadex] 100 mg PO QDAY 05/12/21 05/12/21 Unknown History amLODIPine 10 mg PO DAILY 05/12/21 05/12/21 Unknown History hydrOXYzine PAMOATE [Vistaril] 25 mg PO Q6HR 05/12/21 05/12/21 Unknown History levETIRAcetam [Keppra TAB] 250 mg PO 3XW 05/12/21 05/12/21 Unknown History levETIRAcetam [Keppra TAB] 500 mg PO Q12H 05/12/21 05/12/21 Unknown History ED Physical Exam - General Limitations: No Limitations General appearance: alert, in no apparent distress - Head Head exam: Present: atraumatic, normocephalic - Neck Neck exam: Present: normal inspection - Respiratory Respiratory exam: Present: normal lung sounds bilaterally. Absent: respiratory distress - Cardiovascular Cardiovascular Exam: Present: regular rate, normal rhythm, normal heart sounds - GI/Abdominal GI/Abdominal exam: Present: soft. Absent: distended, tenderness - Rectal Rectal exam: Present: deferred - Extremities Exam Extremities exam: Present: other (Fistula to left arm with palpable thrill) - Neurological Exam Neurological exam: Present: alert, oriented X3 - Psychiatric Psychiatric exam: Present: normal affect, normal mood - Skin Skin exam: Present: warm, dry, intact, normal color ED Course Vital Signs 11/14/21 11/14/21 03:29 08:30 Temperature 98.2 F Pulse Rate 78 69 Respiratory 18 18 Rate Blood Pressure 180/90 Blood Pressure 128/83 [Right] O2 Sat by Pulse 100 94 Oximetry ED Medical Decision Making - Lab Data Result diagrams: 11/14/21 05:53 11/14/21 08:45 - EKG Data -: EKG Interpreted by [place] EKG shows normal: sinus rhythm Rate: normal - EKG Data 11/14/21 11:22 Right bundle branch block and left anterior fascicular block - Medical Decision Making Labs grossly unremarkable except for chronically elevated creatinine/BUN/troponin. Potassium within normal limits. Patient currently is asymptomatic. He is stable for discharge home with return precautions. Critical care attestation.: If time is entered above; I have spent that time in minutes in the direct care of this critically ill patient, excluding procedure time. ED Disposition Clinical Impression: Nonspecific chest pain Disposition: HOME / SELF CARE / HOMELESS Is pt being admited?: No Condition: Stable Instructions: Nonspecific Chest Pain, Adult Referrals: CHRIS CROW MD [Primary Care Provider] - 3-5 Days Time of Disposition: :
--- NOTE | 2021-11-14 10:58 | Electrocardiograph Report ---
[facility] Test Date: 2021-11-14 Test Time: 03:41:16 Pat Name: NICOLE RAYA Department: Room: Gender: M Postdoctoral Scientist: CHAD : 1970 Requested By: FATMATA BERNARD Order Number: [id number] Reading MD: Sang Montgomery Measurements Intervals [place] Rate: 68 P: 0 MA: 78 QRS: -48 QRSD: 165 T: 16 QT: 449 QTc: 478 Interpretive Statements Sinus rhythm RBBB and LAFB Compared to ECG 05/12/2021 06:13:56 Left anterior fascicular block now present Electronically Signed On 11-14-2021 10:57:57 EDT by Sang Montgomery
[2021-11-14 11:24] LABS: Chol/HDL Ratio 2.48 %
[2021-11-14 12:50] VITALS: BP 136/96
== END 2021-11-14 12:05 | disposition home or self-care (01) ==
LOC: ED 03:21
DX: R07.9 Chest pain, unspecified (principal); I12.0 Hypertensive chronic kidney disease with stage 5 chronic kidney disease or end stage renal disease; N18.6 End stage renal disease; Z86.73 Personal history of transient ischemic attack (TIA), and cerebral infarction without residual deficits; Z91.09 Other allergy status, other than to drugs and biological substances
CPT/HCPCS: 36415; 71045; 80053; 80061; 84484; 85007; 85025; 85610; 93005; 99284